=== PATIENT | female | born 1980 | race Caucasian/White ===

== ENCOUNTER → 2017-04-24 17:06 | Outpatient (CLI) | payer OTHER, SELFPAY ==
--- NOTE | 2017-04-24 17:11 | RAD_ITS ---
STUDY: X-RAY - ABDOMEN/PELVIS REASON FOR EXAM: Female, 36 years old. Abdominal pain and nausea. TECHNIQUE: AP supine and upright views of the abdomen and pelvis. COMPARISON: None. FINDINGS: Normal visualized lung bases. There is an unremarkable bowel gas pattern. There is no demonstrated free abdominal air. The visualized liver, spleen and kidneys are grossly normal in size and morphology. Normal soft tissue structures. Normal visualized osseous structures. RAD/Abd Inc Decub and/or Erect IMPRESSION: Normal x-ray examination of the abdomen and pelvis. Electronically Signed: Brian Puente MD at 14:56 EST , Service support ,
[2017-04-24 17:52] LABS: Basophil# 0.03 X10^3/uL; Basophil% 0.2 % (0-1); Eosinophil# 0.49 X10^3/uL; Eosinophils% 3.6 % (0-5); Hematocrit 40.5 % (37-47); Hemoglobin 13.4 g/dl (12.0-15.0); Mean Corp Hgb Conc 33.1 g/gl (32-36); Mean Corpuscular Volume 90.8 fL (81-99); Mean Platelet Vol. 9.6 fl (6.2-12.0); Monocyte# 0.85 X10^3/uL; Monocyte% 6.2 % (0-10); Neutrophil # 7.95 X10^3/uL (2.7-7.7); Neutrophil % 57.6 % (47-70); POSITIVE COUNT NO; POSITIVE DIFFERENTIAL NO; Platelet Count 216 K/mm3 (150-450); RBC Distribution Width CV 13.2 % (11.6-14.6); RBC Distribution Width SD 43.9 fl (35.1-43.9); Red Blood Count 4.46 M/mm3 (4.2-5.4); White Blood Count 13.8 K/mm3 (4.4-11.0)
[2017-04-24 17:53] LABS: POSITIVE MORPHOLOGY NO
[2017-04-24 18:17] LABS: AST(SGOT) 15 U/L (15-37); Alanine Aminotransfer ALT/SGPT 26 U/L (13-56); Albumin, Serum 3.8 g/dL (3.2-5.0); Alkaline Phosphatase 57 U/L (45-117); Amylase 45 U/L (25-115); Bilirubin, Direct 0.08 mg/dL (0.00-0.30); Globulin 4.1 g/dL (2.2-4.2); Lipase 132 U/L (73-393); Protein, Total 7.9 g/dL (6.4-8.2)
== END ==
PROVIDERS: Family Provider Family Medicine; PCP Family Medicine; Visit Provider Family Medicine
DX: R10.11 Right upper quadrant pain (principal)
CPT/HCPCS: 74019; 80076; 82150; 83690; 85025

== ENCOUNTER 2017-10-20 08:25 | Emergency (ER) | payer OTHER, BC, SELFPAY ==
[2017-10-20 08:27] VITALS: BP 153/87; PULSE 71; RESP 14; TEMP 35.5; O2SAT 97; BMI 39.9
--- NOTE | 2017-10-20 08:43 | ED.VISSUMM ---
- ER Visit Summary Date of Service: 10/20/17 Chief Complaint: Bilateral jaw pain History of Present Illness: The patient is a 37 F who states that when she woke up this morning she had pain at the angle of her mandible on each side. She states it is very sore to open her jaw. She does not recall ever dislocating her jaw. She denies any excessive chewing yesterday. Patient states that from 10:00 to 3:30 in the morning she slept fine but at 0330 she woke with the pain. She denies any dental pain. She denies any focal swelling. No hearing changes. No ear pain. No sinus problems. Physical Examination: Afebrile vital signs are stable Gen: Well-nourished well-developed Head: Normocephalic atraumatic Eyes: Perrl EOMI ENT: TMs clear no rhinorrhea moist mucous membranes the patient has discomfort with opening of the mandible. The patient has mild tenderness to palpation along the masseter muscles. There is mild TMJ tenderness. There is no pain along the zygomatic arch or temporalis muscle. Neck: Supple no lymphadenopathy no JVD nontender CVS: Regular rate rhythm no murmurs normal S1-S2 Respiratory: No distress clear to auscultation bilaterally chest nontender Abdomen: Soft nontender nondistended normal bowel sounds no masses Back: Nontender Extremity: Nontender no edema Skin: Normal color no rash Neuro: alert orientated ?3 CN II-XII intact normal strength sensation reflexes gait cerebellar Psych: Normal affect normal mood Test Results: Not indicated Emergency Department Course and Treatment: I believe the patient most likely was sleeping with her jaw clenched resulting in over activation of the masseter muscles now resulted in soreness. I will encourage her to eat soft foods today to avoid chewing. This becomes a more chronic issue she should see her dentist for a bite guard. We talked about muscle relaxants and the patient declines at this time which I feel is very reasonable Impression: 1. Acute masseter muscle strain This note was generated with Duable Chinese dictation software. It may contain incorrect words, spelling, and punctuation that were not noted in review of the chart prior to signing ED Disposition - Plan for ED Patient: Disposition: Home or Assisted Living Chief Complaint: Other, Pain/Inj Instructions: Understanding Temporomandibular Disorders (TMD)
== END 2017-10-20 09:00 | disposition home or self-care (01) ==
LOC: ED 09:05
PROVIDERS: Emergency Provider Emergency Medicine; Family Provider Family Medicine; PCP Family Medicine
DX: S09.11XA Strain of muscle and tendon of head, initial encounter (principal); X58.XXXA Exposure to other specified factors, initial encounter; Y93.9 Activity, unspecified; Y92.9 Unspecified place or not applicable
CPT/HCPCS: 99281

== ENCOUNTER → 2018-01-04 14:12 | Outpatient (CLI) | payer OTHER, BC, SELFPAY | PROVIDERS: Family Provider Family Medicine; PCP Family Medicine; Visit Provider Family Medicine | DX: Z00.00 Encounter for general adult medical examination without abnormal findings (principal) ==

== ENCOUNTER → 2018-01-08 09:45 | Outpatient (CLI) | payer OTHER, BC, SELFPAY ==
[2018-01-08 12:36] LABS: Anion Gap 7 (5-15); BUN 21 mg/dL (7-18); BUN/Creat Ratio 21.6 RATIO (10-20); Calcium,Total 8.5 mg/dL (8.5-10.1); Chloride 107 mmol/L (98-107); Creatinine, Serum 0.97 mg/dL (0.55-1.02); EST Glomerular Filtration Rate 69 mL/min (>60); Est Glom Filt Rate - Afr Amer 84 mL/min (>60); Glucose 112 mg/dL (74-106); Potassium 4.3 mmol/L (3.5-5.1); Sodium Level 141 mmol/L (136-145)
== END ==
PROVIDERS: Family Provider Family Medicine; PCP Family Medicine; Visit Provider Family Medicine
DX: I10 Essential (primary) hypertension (principal)
CPT/HCPCS: 36415; 80048

== ENCOUNTER 2018-03-19 17:52 | Emergency (ER) | payer OTHER, BC, SELFPAY ==
[2018-03-19 17:54] VITALS: BP 141/82; PULSE 90; RESP 16; TEMP 36.9; O2SAT 98; BMI 39.0
--- NOTE | 2018-03-19 18:02 | EKG12_ITS ---
Test Reason : CHEST PAIN Blood Pressure : / mmHG Vent. Rate : 080 BPM Atrial Rate : 080 BPM P-R Int : 156 ms QRS Dur : 084 ms QT Int : 386 ms P-R-T Axes : 047 035 042 degrees QTc Int : 445 ms Normal sinus rhythm Nonspecific ST abnormality Abnormal ECG Confirmed by JOSE G GONZALEZ, MAYNOR ([id number]), research editor CHERYL STEVENSON ([id number]) on 03/21/2018 3:41:30 PM Referred By: TARIK Confirmed By:MAYNOR ARAIZA MD
--- NOTE | 2018-03-19 18:08 | ED.DCSUM_ITS ---
- ER Visit Summary Date of Service: 03/19/18 Chief Complaint: Chest pain History of Present Illness: The patient is a 37 F who presents to the emergency department for evaluation of chest pressure. She states that is been intermittent since this morning. When it comes on it feels like somebody is pushing against the left side of her chest and it makes her left arm feel like pins and needles. She denies any recent travel. She denies any recent surgeries. No recent DVT PE in the past. She is a smoker. She is not having her symptoms at the time of history and physical Physical Examination: Afebrile vital signs are stable Gen: Well-nourished well-developed Head: Normocephalic atraumatic Eyes: Perrl EOMI ENT: TMs clear no rhinorrhea moist mucous membranes Neck: Supple no lymphadenopathy no JVD nontender CVS: Regular rate rhythm no murmurs normal S1-S2 Respiratory: No distress clear to auscultation bilaterally chest nontender Abdomen: Soft nontender nondistended normal bowel sounds no masses Back: Nontender Extremity: Nontender no edema Skin: Normal color no rash Neuro: alert orientated ?3 CN II-XII intact normal strength sensation reflexes gait cerebellar Psych: Normal affect normal mood Test Results: EKG shows a normal sinus rhythm at a rate of 80. No concerning features for ACS. Chest x-ray shows a normal mediastinal silhouette. No obvious lung pathology noted. Troponin and d-dimer are negative. Emergency Department Course and Treatment: I do not see an obvious emergent cause for the patient's pain. She does have a history of GERD so perhaps this could be intermittent esophageal spasm. Patient will follow up with her family doctor if not improving return if worsening or concerns HEMANTH score 0 Impression: 1. Chest pain This note was generated with TapResearchation software. It may contain incorrect words, spelling, and punctuation that were not noted in review of the chart prior to signing ED Disposition - Plan for ED Patient: Chief Complaint: Chest Pain Instructions: ED Chest Pain Atypical Unkn Cause Referrals: Tereza Nguyen MD [Primary Care Provider] - 3-5 Days if not improving
--- NOTE | 2018-03-19 18:20 | RAD_ITS ---
STUDY: X-RAY CHEST REASON FOR EXAM: Female, 37 years old. Chest pressure TECHNIQUE: PA and lateral COMPARISON: May 19 2011 report only FINDINGS: The lungs are clear and expanded. There is no demonstrated pleural abnormality. Normal size heart. Normal mediastinum and dena. Normal visualized pulmonary arteries. Normal visualized aortic arch and descending thoracic aorta. Dorsal spine demonstrates minor spondylosis Normal visualized ribs, clavicles, and shoulders. There is no demonstrated abnormality of the visualized soft tissue structures of the upper abdomen. RAD/Chest PA and Lateral IMPRESSION: No acute cardiopulmonary pathology Electronically Signed: Evan Roche MD at 19:45 EST , Service support ,
[2018-03-19 18:30] LABS: Absolute Lymphocyte Count 3.85 X10^3/ul (0.83-4.51); Absolute Neutrophil Count 7.4 X10^3/uL (2.0-7.7); Basophil# 0.02 X10^3/uL; Basophil% 0.2 % (0-1); Eosinophil# 0.55 X10^3/uL; Eosinophils% 4.3 % (0-5); Hematocrit 41.3 % (37-47); Hemoglobin 13.8 g/dl (12.0-15.0); Lymphocyte # 3.85 X10^3/ul (4.0); Lymphocyte % 30.2 % (19-41); Mean Corp Hgb Conc 33.4 g/gl (32-36); Mean Corpuscular Hgb 30.7 pg (27.0-32.0); Mean Platelet Vol. 10.1 fl (6.2-12.0); Monocyte# 0.87 X10^3/uL; Monocyte% 6.8 % (0-10); Neutrophil # 7.42 X10^3/uL (2.7-7.7); Neutrophil % 58.2 % (47-70); POSITIVE COUNT NO; POSITIVE DIFFERENTIAL NO; POSITIVE MORPHOLOGY NO; Platelet Count 225 K/mm3 (150-450); RBC Distribution Width CV 13.3 % (11.6-14.6); RBC Distribution Width SD 44.3 fl (35.1-43.9); Red Blood Count 4.49 M/mm3 (4.2-5.4); White Blood Count 12.8 K/mm3 (4.4-11.0)
[2018-03-19 18:40] LABS: D-Dimer Quantitative (DVT/PE) 0.42 FEU/ug/m (0.27-0.49)
[2018-03-19 18:54] LABS: Anion Gap 10 (5-15); BUN 18 mg/dL (7-18); Calcium,Total 9.1 mg/dL (8.5-10.1); Chloride 107 mmol/L (98-107); EST Glomerular Filtration Rate 67 mL/min (>60); Est Glom Filt Rate - Afr Amer 81 mL/min (>60); Estimated Creatinine Clearance 82.06 ml/min; Glucose 86 mg/dL (74-106); Potassium 3.5 mmol/L (3.5-5.1); Sodium Level 141 mmol/L (136-145)
[2018-03-19 19:30] VITALS: BP 116/98; PULSE 88; RESP 16
== END 2018-03-19 19:31 | disposition home or self-care (01) ==
PROVIDERS: Emergency Provider Emergency Medicine; Family Provider Family Medicine; PCP Family Medicine
DX: R07.89 Other chest pain (principal); R20.2 Paresthesia of skin; K21.9 Gastro-esophageal reflux disease without esophagitis; F17.200 Nicotine dependence, unspecified, uncomplicated
CPT/HCPCS: 71046; 80048; 84484; 85025; 85379; 93005; 99284; A4216

== ENCOUNTER → 2018-05-15 14:10 | Outpatient (CLI) | payer OTHER, BC, SELFPAY ==
--- NOTE | 2018-05-15 15:20 | NEURO ---
NCS and/or EMG Patient Report Ordering Doctor: Tereza Nguyen DATE OF SERVICE: 05/15/18 Jayne Algeria is a 37-year-old female presents for electrodiagnostic testing of the left upper limb. She reports numbness and tingling primarily in the second digit of the left hand. Electrodiagnostic findings: Left median motor nerve demonstrates prolonged distal latency with normal amplitude and reduced conduction velocity. Normal left ulnar motor response. Normal median ulnar F waves. Prolonged median sensory latency at the wrist. Needle EMG testing reveals fibrillation potentials in the left flexor carpi ulnaris, left triceps and left lower cervical paraspinals. Motor unit action potentials were of normal amplitude and duration. Electrodiagnostic assessment: This is an abnormal study in the left upper limb 1. Electrodiagnostic findings demonstrate left-sided median mononeuropathy. This is consistent with a mild left carpal tunnel syndrome. 2. Needle EMG is suggestive of acute left-sided C7 radiculopathy. Consider clinical correlation with cervical spine imaging. If there are any further questions, please not hesitate to contact me
== END ==
PROVIDERS: Family Provider Family Medicine; PCP Family Medicine; Referring Provider Family Medicine; Visit Provider Family Medicine
DX: R20.2 Paresthesia of skin (principal)
CPT/HCPCS: 95886; 95909

== ENCOUNTER → 2018-06-10 09:39 | Outpatient (CLI) | payer OTHER, BC, SELFPAY ==
--- NOTE | 2018-06-10 09:40 | MRI_ITS ---
STUDY: MRI CERVICAL SPINE WITHOUT CONTRAST REASON FOR EXAM: Female, 37 years old. Left hand neuropathy and neck pain TECHNIQUE: Standardized fat and water weighted pulse sequences were obtained in the sagittal and axial planes. COMPARISON: None FINDINGS: Normal foramen magnum and brainstem-cervical cord junction. Normal craniovertebral junction. Normal anterior atlantoaxial articulation. Normal odontoid process. Cerebellar tonsillar ectopia. The tips of the tonsils are located 4 mm below the foramen magnum. There is straightening of the normal cervical lordosis. Normal vertebral bodies and posterior osseous elements. C2-3: Normal endplates. Normal disc height, signal and morphology. Normal central canal and intervertebral neural foramina. C3-4: Disc osteophyte complex with mild central canal stenosis. C4-5: Disc osteophyte complex without compressive sequelae. C5-6: Disc osteophyte complex with moderate central canal and moderate to severe right and mild left foraminal stenoses. C6-7: Disc osteophyte complex and left paracentral disc protrusion with moderate to severe central canal stenosis, mild cord compression and severe left foraminal stenosis. There is mass effect on the left C7 nerve root. C7-T1: Normal endplates. Normal disc height, signal and morphology. Normal central canal and intervertebral neural foramina. No intrinsic cord signal abnormalities are seen at this time. Normal visualized soft tissue structures. MRI/Spine Cervical (Routine) IMPRESSION: Multilevel degenerative disease as described. At C6-7, there is mild cord compression and severe left foraminal stenosis, with mass effect on the left C7 nerve root. No intrinsic cord signal abnormalities are seen at this time. Electronically Signed: Isac Woodward MD at 12:58 EDT Tel , Service support ,
== END ==
PROVIDERS: Family Provider Family Medicine; PCP Family Medicine; Referring Provider Family Medicine; Visit Provider Family Medicine
DX: G62.9 Polyneuropathy, unspecified (principal)
CPT/HCPCS: 72141

== ENCOUNTER → 2018-09-24 | Outpatient (CLI) | payer OTHER, BC, SELFPAY ==
[2018-09-24 13:21] VITALS: BMI 39.0
--- NOTE | 2018-09-24 13:27 | RAD_ITS ---
STUDY: X-RAY - CERVICAL SPINE REASON FOR EXAM: Female, 38 years old. Neck pain, decreased range of motion TECHNIQUE: 4 view(s) of the cervical spine were obtained. COMPARISON: None FINDINGS: Normal anterior atlantoaxial articulation. Normal odontoid process. Normal cervical lordosis. Normal vertebral bodies and endplates. Disc space narrowing noted at C5-6 and C6-7. No evidence of instability on flexion or extension views. The soft tissue structures are unremarkable. RAD/Cerv Spine 4 or 5 Views IMPRESSION: Degenerative changes, no acute findings Electronically Signed: Tesfaye Hemphill MD at 14:06 EDT , Service support ,
== END | disposition home or self-care (01) ==
LOC: HPRAD 13:26
PROVIDERS: Family Provider Family Medicine; PCP Family Medicine; Referring Provider Orthopaedic Surgery; Visit Provider Orthopaedic Surgery
DX: R20.0 Anesthesia of skin (principal); R20.2 Paresthesia of skin
CPT/HCPCS: 72050

== ENCOUNTER → 2018-12-05 17:46 | Outpatient (CLI) | payer OTHER, SELFPAY ==
[2018-09-24 13:21] VITALS: BMI 39.0
[2018-12-11 13:06] LABS: HPV Reflexed? NOT INDICATED
== END ==
PROVIDERS: Family Provider Family Medicine; PCP Family Medicine; Referring Provider Obstetrics & Gynecology; Visit Provider Obstetrics & Gynecology
DX: Z12.4 Encounter for screening for malignant neoplasm of cervix (principal)
CPT/HCPCS: 88175; G0145

== ENCOUNTER → 2018-12-24 15:23 | Outpatient (CLI) | payer OTHER, BC, SELFPAY ==
[2018-09-24 13:21] VITALS: BMI 39.0
[2018-12-24 18:43] LABS: Thyroid Stim Hormone (TSH) 1.71 uIU/mL (0.358-3.74)
== END ==
LOC: MFPLAB 15:23
PROVIDERS: Family Provider Family Medicine; PCP Family Medicine; Referring Provider Family Medicine; Visit Provider Family Medicine
DX: E66.9 Obesity, unspecified (principal)
CPT/HCPCS: 36415; 84443

== ENCOUNTER 2019-07-22 09:00 | Outpatient (RCR) | payer OTHER, SELFPAY ==
[2018-09-24 13:21] VITALS: BMI 39.0
--- NOTE | 2019-07-22 10:20 | BH.SGPN.GN ---
This psychotherapy group was provided via telehealth using two-way, real-time interactive telecommunication technology between the patients and the provider. The interactive telecommunication technology included audio and video. The patient was offered telemedicine as an option for care delivery during the COVID-19 pandemic and consented to this option. Patient location: [place] Provider located at [facility] Behaviors/Verbalizations/Mental Status: []Client alert and oriented, casually dressed and groomed. Eye contact good. Motor activity appropriate. Speech within normal limits. Affect constricted, mood irritable. Thoughts linear, logical, no signs of hallucinations or delusions. Client Response/Progress/Benefit: []Client was an active participant AEB client providing input during discussion and listened attentively to others. Contributed to discussion of the quote and stated she could connect with the concept of sitting with uncomfortable feelings. Client shared thinking of taking on her fears rather than avoiding them makes client nervous. Client connected with discussion on the difference between ?normal? anxiety and when anxiety becomes problematic. Client stated she becomes anxious when she recognizes warning signs that he is drinking more than usual. Client gained awareness of personal physical symptoms of anxiety which included; shaking, feeling panicky, and stomach issues. Client also identified safety behaviors client has used when feeling anxious. These safety behaviors included; isolating and lashing out at others. Client appeared to benefit from gaining insight to physical signs of anxiety and personal safety behaviors. Client's first day of IOP tx. Will continue IOP to prevent decompensation, increase healthy coping skills, and improve mood stability. Narrative Note: []
--- NOTE | 2019-07-22 11:21 | BH.SGPN.GN ---
Behaviors/Verbalizations/Mental Status: []Client alert and oriented, casual in appearance. Eye contact good. Motor activity via as this was conducted via telehealth. Speech within normal limits. Affect congruent, mood dysthymic, anxious. Thoughts linear, logical, no signs of hallucinations or delusions. Client Response/Progress/Benefit: []Pt active participant and providing some input to discussion, listened attentively to others, and taking notes throughout. Pt nodding throughout and appeared to connect with the discussion reviewing three categories of skills for managing anxiety which included mind-based, body-based, and self-soothing. Asked questions throughout and contributed ideas. Described to the group skills she currently uses such as going for a drive to help ease her anxiety. Pt did well to identify a skill she is willing to practice mindfulness in the areas of body-based as: deep breathing, Self-soothing as: taking a bath, and mind-based: coloring. Pt seemed to benefit from increased awareness of healthy skills to manage anxiety related symptoms and in identifying skills willing to practice outside treatment environment. Progress limited as it is pt first day in IOP program. Client to continue IOP level of care to increase healthy coping skills, promote emotion regulation skills, and prevent decompensation. Narrative Note: []
--- NOTE | 2019-07-23 08:05 | BH.COMM ---
Communication Note - Communication with Client Communication Note: Pt completed pre-admission screen via telehealth on 07/22/19. During the timeframe of the COVID-19 pandemic, verbal consent was obtained on 07/22/19 at 09:22am via Zoom from Jayne Gan for IOP level of care. During the duration of the telehealth call, Therapist reviewed with pt consent to treat, telehealth consent, basic client rights, and ROIs which she reviewed and verbally consented to. Pt to begin the IOP program on this date. Therapist additionally worked with pt to complete [place] Suicide Screening Assessment. No significant changes since pre-admission screening. Low to moderate risk for suicide. Denies suicidal ideations in the past month. Reports hx of suicidal thoughts on one prior occasion, approximately 3 months ago. Denies thoughts or ideation since. Reports mainly passive thoughts of ?what would happen if I just weren?t here?. Denies any other prior hx of suicidal ideation or attempts. Denies hx of self-harming behaviors. Protective factors. Future-oriented.
--- NOTE | 2019-07-29 09:03 | BH.SGPN.GN ---
This psychotherapy group was provided via telehealth using two-way, real-time interactive telecommunication technology between the patients and the provider. The interactive telecommunication technology included audio and video. The patient was offered telemedicine as an option for care delivery during the COVID-19 pandemic and consented to this option. Patient location: [place] Provider located at [facility] Behaviors/Verbalizations/Mental Status: []Client alert and oriented, neatly dressed and groomed. Eye contact good. Motor activity appropriate. Speech within normal limits. Affect congruent-tearful, mood anxious. Thoughts linear, logical, no signs of hallucinations or delusions. Reviewed client?s symptom tracker, no risk for suicidal ideation, plan, or intent as of 07/29/19. Client Response/Progress/Benefit: []Client responded well to session, receptive to feedback from peers. Client reports feeling anxious today and she was tearful during check-in. Client shared she is struggling with her 's alcoholism. Client her is a functioning alcoholic, so you wouldn't even know. Client receptive to feedback from peers and emotional support. Client acknowledged she needs to practice self-care and set boundaries. Client practiced self-care over the weekend. Client reported she went for a walk with her dog and pushed herself to clean this weekend. Client recognized that when she pushes herself to do things she feels better. Appeared to benefit from connecting with peers and receiving emotional support. Will continue IOP tx to prevent decompensation, increase healthy coping skills, and reduce isolative behaviors. Narrative Note: []
--- NOTE | 2019-07-29 10:15 | BH.SGPN.GN ---
This psychotherapy group was provided via telehealth using two-way, real-time interactive telecommunication technology between the patients and the provider. The interactive telecommunication technology included audio and video. The patient was offered telemedicine as an option for care delivery during the COVID-19 pandemic and consented to this option. Patient location: [place] Provider located at [facility] Behaviors/Verbalizations/Mental Status: []Client alert and oriented, casually dressed and groomed. Eye contact good. Motor activity appropriate, though limited info due to pt being telehealth. Speech within normal limits. Affect appearing congruent, mood anxious and euthymic. Thoughts linear, logical, no signs of hallucinations or delusions. Client Response/Progress/Benefit: []Client responded well to session, remained attentive and providing input to discussion. Client indicated connecting with topic of boundaries and agreed with peers that healthy boundaries are essential for maintaining mental health progress. Expressed that the importance of setting healthy boundaries has become much more evident to her as she has gotten older and since experiencing increased mental health sx. Group participated in the discussion on benefits of setting boundaries which included; feeling happier, improved self-confidence, avoidance of toxic people, and reduced stress. Client engaged during discussion on the different types of boundaries and able to identify and connect with examples of each. Client also helped the group recognize the consequences of not having healthy boundaries. Provided an example of recently oversharing information about a family member which resulted in mistrust and them becoming upset with pt. Client seemed to benefit from increased awareness of how poor boundaries can negatively impact mental health. Progress noted in client?s increased awareness and more input provided during group. Will continue IOP tx to promote mood stability, improve consistent skill application, and improve daily functioning. Narrative Note: []
--- NOTE | 2019-07-29 11:20 | BH.SGPN.GN ---
This psychotherapy group was provided via telehealth using two-way, real-time interactive telecommunication technology between the patients and the provider. The interactive telecommunication technology included audio and video. The patient was offered telemedicine as an option for care delivery during the COVID-19 pandemic and consented to this option. Patient location: [place] Provider located at [facility] Behaviors/Verbalizations/Mental Status: []Client alert and oriented, casually dressed. Eye contact fair. Motor activity appropriate. Speech within normal limits. Affect constricted, mood anxious and depressed. Thoughts linear, logical, no signs of hallucinations or delusions. Client Response/Progress/Benefit: []Client responded well to session, actively contributing during discussion and making connections during the activity. Client engaged in the boundary self-assessment activity and participated in discussion to process the activity. Client attentive during psychoeducation on the boundary setting styles and she shared belief she uses porous and rigid boundary setting styles. Client stated she starts off as porous with her boundaries by letting everyone in. Pt reported when she feels used or disrespected then she transitions to having a rigid boundary. Pt reported rigid boundaries Progress noted in client?s report of reduced isolation and application of opposite action. Will continue IOP tx to promote use of healthy coping skills, further decrease depression, and improve functioning. Narrative Note: []
--- NOTE | 2019-07-30 09:07 | BH.SGPN.GN ---
Behaviors/Verbalizations/Mental Status: []Client alert and oriented, neat and casually dressed. Eye contact good. Motor activity appropriate. Speech within normal limits. Affect congruent, mood depressed, anxious. Thoughts linear, logical, no signs of hallucinations or delusions. Reviewed client?s symptom tracker, no risk for suicidal ideation, plan, or intent as of 07/30/19. Client Response/Progress/Benefit: []Client responded well to session, attentive and willing to share with the group. Client reports feeling tired and sluggish today as she was up much of the night thinking about all the things she has to do. Expressed this as her current stressor as she now has less energy and motivation to complete the tasks due to nighttime rumination. Receptive of suggestions from the group from managing nighttime anviety and expressed wanting to work on practicing deep breathing exercises. Pt did well to identify current mental health wins which included getting her car fixed and being able to attend IOP group in person. Expressed that she feels more relieved since getting her car fixed. Receptive of support and appeared to benefit from the structured group setting. Will continue iop tx to improve mood stability, prevent decompensation, and improve mental health sx management. Narrative Note: []
--- NOTE | 2019-07-30 10:15 | BH.SGPN.GN ---
Behaviors/Verbalizations/Mental Status: []Client alert and oriented, casually dressed. Eye contact fair. Motor activity appropriate. Speech within normal limits. Affect constricted, mood dysthymic. Thoughts linear, logical, no signs of hallucinations or delusions. Client Response/Progress/Benefit: []Pt semi-active participant throughout session AEB pt providing limited input throughout discussion, however did appear to listen attentively to peers and completed worksheet. Group identified external consequences to not managing anger which included: cause conflict, push people away, lose relationships, potential legal problems, increases avoidance, hurt others, and negatively impact work. Group identified internal consequences of unmanaged anger which include: high blood pressure, ulcers, headaches, muscle tension, irrational thoughts, irrational behavior, guilt and shame. Pt shared emotions that are underlying anger include: depressed, embarrassed, and over-apologetic. Pt seemed to benefit from increased awareness of how unmanaged anger can impact self and others. Pt to continue IOP to increase healthy coping skills, challenge distorted thoughts and prevent decompensation. Narrative Note: []
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
--- NOTE | 2019-07-30 13:13 | BH.DR.ITP ---
Initial Treatment Plan - Patient Information Visit Information: ADMISSION DATE: EXPECTED LOS: 4-6 weeks - Problems/Symptoms Problem #1:: Depression Symptom:: sadness, crying, anhedonia, fatigue, low energy Problem #2:: Anxiety Symptom:: Rumination, panic attacks, worry
--- NOTE | 2019-07-30 14:44 | BH.MDN ---
Multi-Disciplinary Note - Note 30-min Individual Time Started:: 12:10 Date: 07/30/19 Time Stopped:: 12:45
--- NOTE | 2019-08-01 09:09 | BH.SGPN.GN ---
Behaviors/Verbalizations/Mental Status: []Client alert and oriented, appropriate grooming and appearance. Eye contact good. Motor activity appropriate. Speech within normal limits. Affect congruent, mood anxious and euthymic. Thoughts linear, logical, no signs of hallucinations or delusions. Reviewed client?s symptom tracker, no risk for suicidal ideation, plan, or intent as of 08/01/19. Client Response/Progress/Benefit: [] Client responded well to session, engaged and listening throughout. Client reports feeling positive today as she was able to take some time to practice emotional release activities with her daughter. Indicated that this was her goal from last group and that it both made her feel a sense of release as well as provided an opportunity to mercer more with her daughter. Expressed gaining insight into how using healthy coping can really start to change her mood. Pt went on to indicate feeling she still struggles to know what skills to utilize which has been a stressor, but that she is open to trying new activities and expanding her knowledge. Appeared to benefit from reflecting on impact of application of coping skills and support from the group. Will continue IOP tx to further improve mood stability, reduce negative and racing thoughts, and increase healthy coping skills. Narrative Note: []
--- NOTE | 2019-08-01 10:16 | BH.SGPN.GN ---
This psychotherapy group was provided via telehealth using two-way, real-time interactive telecommunication technology between the patients and the provider. The interactive telecommunication technology included audio and video. The patient was offered telemedicine as an option for care delivery during the COVID-19 pandemic and consented to the option. Patient location: [place]. Provider located at [facility] Behaviors/Verbalizations/Mental Status: []Client alert and oriented, casually dressed and groomed. Eye contact fair. Motor activity appropriate. Speech within normal limits. Affect congruent, mood anxious. Thoughts linear, logical, no signs of hallucinations or delusions. Client Response/Progress/Benefit: []Client was an active participant AEB providing some input throughout discussion, taking notes, and actively listening. Client participated in group discussion regarding mental health benefits of change which included improved functioning, less anxiety and depression, personal growth, and happiness. Client identified small personal changes to improve mental health as: taking medications consistently, going to bed earlier and eating breakfast each day, and identifying toxic people in her life. Identified current barriers keeping client from making those changes to be: not liking how it feels to take medication, anxiety, and lack of insight. Client appeared to benefit from gaining awareness of personal changes that would improve mental health and the barriers keeping client stuck. Will continue IOP tx to prevent decompensation, improve mood stability, and to reduce anxiety and irritability. Narrative Note: []
--- NOTE | 2019-08-01 11:18 | BH.SGPN.GN ---
This psychotherapy group was provided via telehealth using two-way, real-time interactive telecommunication technology between the patients and the provider. The interactive telecommunication technology included audio and video. The patient was offered telemedicine as an option for care delivery during the COVID-19 pandemic and consented to the option. Patient location: [place]. Provider located at [facility] Behaviors/Verbalizations/Mental Status: []Client alert and oriented, casually dressed and groomed. Eye contact poor. Motor activity appropriate. Speech within normal limits. Affect constricted, mood depressed. Thoughts linear, logical, no signs of hallucinations or delusions. Client Response/Progress/Benefit: []Client responded well to session, engaged in discussion. Client did well to select one change she would like to make and identified a SMART goal to help client make this change. Shared she wants to work on identify toxic people in her life by journaling about issues the cause stress in her life. Barriers for this change included: family, caring too much, and fear of losing supports. Discussed that this change would help client increase healthy boundaries and reduce anxiety. Client?s SMART goal was to journal each day and practice setting one healthy boundary. Client benefited from working with group to identify strategies to overcome barriers to change and create a plan for implementing one small change promoting personal growth. Client recommended to continue IOP tx to reduce intensity of symptoms, improve daily functioning, and increase healthy coping skills. Narrative Note: []
== END 2019-08-03 23:59 ==
LOC: BHIOP 09:00
PROVIDERS: PCP Family Medicine; Referring Provider Psychiatry & Neurology Psychiatry; Visit Provider Psychiatry & Neurology Psychiatry
DX: F33.2 Major depressive disorder, recurrent severe without psychotic features (principal); F41.1 Generalized anxiety disorder; Z72.89 Other problems related to lifestyle
CPT/HCPCS: H0035; 90832; 90853

== ENCOUNTER 2019-08-05 09:00 | Outpatient (RCR) | payer OTHER, SELFPAY ==
[2018-09-24 13:21] VITALS: BMI 39.0
--- NOTE | 2019-08-05 09:06 | BH.SGPN.GN ---
Behaviors/Verbalizations/Mental Status: []Client alert and oriented, casually dressed and groomed. Eye contact good. Motor activity appropriate. Speech within normal limits. Affect unable to gather due to client wearing a mask for COVID-19 protocol, mood anxious. Thoughts linear, logical, no signs of hallucinations or delusions. Reviewed client?s symptom tracker, no risk for suicidal ideation, plan, or intent as of 08/05/19. Client Response/Progress/Benefit: []Client responded well to session, providing feedback to peers and attentive throughout. Client reports feeling anxious today. Client feels anxious because her children are not with client this week as they are with her ex-. Client stated it is always harder for her mentally when she is not distracted by her children. Client's mental health wins today were that she has been trying to stay busy, setting boundaries with toxic people, and following through with writing in her dump journal. Client stated writing in her dump journal has helped client collect her thoughts when she feels overwhelmed. Appeared to benefit from connecting with peers and reflecting on her application of coping skills. Progress noted in client's self-report of setting more boundaries. Will continue IOP tx to promote mood stability, reduce anxiety and irritability, and improve daily functioning. Narrative Note: []
--- NOTE | 2019-08-05 10:15 | BH.SGPN.GN ---
Behaviors/Verbalizations/Mental Status: []Client alert and oriented, casually dressed. Eye contact good. Motor activity appropriate. Speech within normal limits. Affect constricted, mood depressed and anxiou. Thoughts linear, logical, no signs of hallucinations or delusions. Client Response/Progress/Benefit: []Client engaged throughout session AEB nodding and maintaining eye contact. Connected with discussion on how coping with external crises by using unhealthy coping skills could result in a personal crisis. Group reported that it is important to have awareness of warning signs which can prevent reaching crisis point. Group identified warning signs for crisis and client completed the personal warning signs worksheet. Pt identified personal crisis warning signs to include: increased anxiety, rapid mood changes, and hyperfocus. Benefited by increasing awareness of crisis and personal warning signs. Will continue IOP tx to increase healthy coping, improve mood stability and prevent decompensation. Narrative Note: []
--- NOTE | 2019-08-05 11:20 | BH.SGPN.GN ---
Behaviors/Verbalizations/Mental Status: []Client alert and oriented, casually dressed and groomed. Eye contact fair. Motor activity appropriate. Speech within normal limits. Affect constricted. Mood dysthymic and anxious. Thoughts linear, logical, no signs of hallucinations or delusions. Client Response/Progress/Benefit: []Client responded well to session as evidenced by client listening attentively to others and providing input throughout session. Client identified her warning signs for crisis and gained further awareness of earliest warning signs. Client appeared to connect that awareness of these warning signs can prevent further crisis and help client utilize healthy coping skills to break the cycle. Client created a crisis action plan to help client better manage warning signs for crisis. Client?s plan included: reaching out to supports, changing environment, walking way, and practice positive affirmations..Client shared her plan is to combat negative thoughts by practicing identifying positives and reframing thoughts. Client appeared to benefit from creating a crisis action plan and increasing self-awareness. Client to continue IOP tx to prevent decompensation, increase healthy coping, and improve healthy boundaries. Narrative Note: []
--- NOTE | 2019-08-06 09:07 | BH.SGPN.GN ---
Behaviors/Verbalizations/Mental Status: []Client alert and oriented, casually dressed. Eye contact good. Motor activity appropriate. Speech within normal limits. Affect congruent, mood dysthymic, anxious. Thoughts linear, logical, no signs of hallucinations or delusions. Reviewed client?s symptom tracker, no risk for suicidal ideation, plan, or intent as of 08/06/19. Client Response/Progress/Benefit: []Client attentive and willing to share with the group. Reports feeling ?tired today as she continues struggling with ruminating thoughts at night. Expressed beginning to use some coping skills such as focusing on the positives and journaling which has been somewhat helpful so far. Client indicated knowing that that progress takes time and was receptive of suggestions and support provided by the group. Pt did well to identify current mental health wins as taking time to practice focusing on positives when noticing she was having a lot of negative thoughts, as well as reaching out to supports rather than allowing herself to dwell a ?bad day?. Pt expressed she is beginning to see some areas of improvement in her ability to manage mental health sx. Appeared to benefit from identifying areas of progress as well as the supportive and structured group setting. Will continue IOP tx to maintain gains and continue to promote healthy mental health sx management. Narrative Note: []
--- NOTE | 2019-08-06 11:09 | BH.SGPN.GN ---
Behaviors/Verbalizations/Mental Status: []Client alert and oriented, neatly dressed and groomed. Eye contact good. Motor activity appropriate. Speech within normal limits. Affect unable to gather due to wearing a mask for COVID-19 protocol, mood anxious. Thoughts linear, logical, no signs of hallucinations or delusions. Client Response/Progress/Benefit: []Client was an active participant in group discussion and activity, did well to follow instructions and provide directions to peers. Engaged during activity and provided ideas on how to cope with internal barriers that keep clients stuck from moving towards goals. Barriers identified by the group included: fear of the unknown, anxiety, negative thinking, isolation, and using unhealthy coping skills. Strategies identified for overcoming these barriers included: deep breathing, affirmations, reaching out to supports, thought challenging, opposite action, and positive self-talk. Client reported she wants to work on overcoming her barrier of negative thinking. Client shared she plans to do this by continuing to journal, but she also wants to try thought challenging in her head. Benefited from group by identifying obstacles and solutions to desired reality. Progress noted in client?s increased insight to her warning signs and unhealthy coping skills. Will continue IOP tx to prevent decompensation, improve healthy coping skills, and reduce negative thoughts. Narrative Note: []
--- NOTE | 2019-08-06 15:23 | BH.NA_ITS ---
Physical Data - Vital Signs Pulse Rate: 78 Blood Pressure: 138/88 - Height/Weight Height: 1.73 m - stated Weight:: 112.037 kg - stated Weight in Pounds: 247.0 lbs Nutritional History - Appetite Nutritional Instructions:: If client shows signs of a swallowing problem, weight change of 10 pounds or more in the last month, or is on a diabetic diet, the physician will review and request a dietitian consult, as appropriate. All unintentional weight loss will be referred to the physician for decision on need for dietitian consult. Describe your appetite:: Fair Have you noticed a change in your eating habits lately?: Yes - Client states appetite has decreased since starting Effexor Functional Assessment - Sleep Pattern Describe any problems with sleeping: Client states she has been getting approximately 5hrs of sleep since starting on Effexor Sunday07/30/19 night. - Activities Motor Activity:: Functional Sensory/Communication Assess - Communication Problems Do you have difficulty understanding what people are saying?: No Medical Problems/History - Cardiac Conditions Cardiovascular: Hypertension - Gastrointestinal Conditions Gastrointestinal: Other (See comments) Comments:: GERD Surgical History - Surgical History Have you had any surgeries? If so, list type and date:: Yes - Tubal ligation, Tonsillectomy, Cholecystectomy, Ovary removed, Ovarian Cyst Substance Abuse - Substance Abuse Please describe substance abuse in the last 30 days:: Client states that she drinks on the weekends Sunday-Sunday, states wine. Client states that she has used tobacco, smokes 1/2PPD since approximately 2002. Client states that she consumes caffeine, drinking one cup coffee daily. Mental Status Summary - Mental Status Significant Findings/Observations on Appearance and Mood:: Client is alert and oriented x4. Client is casually groomed. Client is cooperative with assessment, makes good eye contact during conversation. Client's speech with normal rate and volume, coherent and spontaneous. Client appears mildly anxious and mildly depressed during assessment. Client makes logical associations, normal processing. Client denies delusions and hallucinations, none evident. Client appears with good insight and judgement. Suicide Assessment - Suicidal Ideation Are you currently or have you been suicidal in the past?: No - Denies current SI/HI Suicidal Intentional Rating Scale (SIRS): No suicidal thoughts (past or present) Physician Notification: If Active suicidal thoughts/Will not contract for safety is checked, contact physician and document in the Physician Notification section below. Past Psychiatric History - MH Treatment Hx Past Psychiatric Medications:: Client states has been on antidepressants in the past but cannot recall the names Age of first mental health symptoms: Client states that she has not been officially diagnosed with Anxiety or Depression but has had anxiety and depressiojn since about 17yo Describe (age, circumstance, etc) any past hospitalizations: Client denies past psychiatric hospitalizations. Current providers for mental health treatment (counselor, psychiatrist, nurse case management, etc.): Client denies any mental health providers Fall Risk Assessment - Age Age: Less than 60 - Mental Status Mental Status: Willing & able to ask for assistance when needed - Physical Status Physical Status: No problems - Impairments Impairments: None - Elimination Elimination: Continent AND independent - Gait or Balance Gait or Balance: Walks independently - Hx of Falls History of falls in the past 6 months: No known history - Medications/Substances Psychotropics:: Antidepressants Medications/substances used within the past 24 hours or ordered to administer: 1-2 of the medications/substances listed above - Total Score Total Points:: 1 RN Summary of Impressions - Impressions Recommendations: Include psychiatric and medical issues, treatment planning recommendations, and discharge planning needs. Impressions: Psychiatric Issues: Major depressive disorder, recurrent, severe without psychosis; generalized anxiety disorder; alcohol use disorder - Level of Care How do the client's current symptoms and functional deficits support need for this level of care?: Client details onset of current episode, stating it started over the past year. Client states that she has felt an increase in anxiety, some depression and anger outburst towards her . States her is an alcoholic and that has been a stressor. Client states she drinks alcohol to cope. IOP will promote gains and prevent further decompensation while providing social support and skills training.
[2019-08-06 15:39] VITALS: BP 138/88; PULSE 78
--- NOTE | 2019-08-08 09:14 | BH.SGPN.GN ---
This psychotherapy group was provided via telehealth using two-way, real-time interactive telecommunication technology between the patients and the provider. The interactive telecommunication technology included audio and video. The patient was offered telemedicine as an option for care delivery during the COVID-19 pandemic and consented to this option. Patient location: [place] Provider located at [facility] Behaviors/Verbalizations/Mental Status: [] Client alert and oriented, casually dressed. Eye contact good. Motor activity appropriate, though difficult to determine as pt telehealth. Speech within normal limits. Affect congruent, though pt telehealth, mood euthymic. Thoughts linear, logical, no signs of hallucinations or delusions. Reviewed client?s symptom tracker, no risk for suicidal ideation, plan, or intent as of 08/07/19. Client Response/Progress/Benefit: []Client responded well to session, attentive and willing to share with the group. Client reports feeling excited? today as she is planning to go to the [employer] [place] and get pedicures with friends this weekend. Expressed that this will help her with emotional release from some of the stressors she has been facing lately. Expressed additionally taking the step to speak with her parents about her current marital stressors. Noted that this had been difficult for her to do as she worried that her parents would hand hose cutter her; however, shared that they had been much more supportive than expected. Discussed this as a win and shared using deep breathing to help encourage herself to follow through with doing so but is now concerned that she will be a ?burden? to them. Appeared to benefit from challenging this and receiving support from the group. Progress noted in pt improved mood and self-report of increased skill application. Will continue IOP tx to maintain mood stability, continue to work on emotion regulation, and improve mental health sx management. Narrative Note: []
--- NOTE | 2019-08-08 10:15 | BH.SGPN.GN ---
This psychotherapy group was provided via telehealth using two-way, real-time interactive telecommunication technology between the patients and the provider. The interactive telecommunication technology included audio and video. The patient was offered telemedicine as an option for care delivery during the COVID-19 pandemic and consented to this option. Patient location: [place] Provider located at [facility] Behaviors/Verbalizations/Mental Status: []Client alert and oriented, casually dressed. Eye contact good. Motor activity appropriate. Speech within normal limits. Affect constricted, mood anxious. Thoughts linear, logical, no signs of hallucinations or delusions. Client Response/Progress/Benefit: []Pt receptive to session, participating throughout. Provided input as the group brainstormed the positive and negative aspects of stress on physical and mental health. Group worked together to define stress and provided input during discussion about eustress vs distress. Client identified her stressors include: work, coronavirus, family, 's drinking, money, camping trip, family reunion, daughter's birthday constitution party, fear won't follow through with skills after IOP, and brother-in law living with her. Client states most significant stressor is her 's drinking. Seemed to benefit from increased awareness of her current stressors and impact of too much stress on the mind and body. Recommended to continue IOP tx to increase healthy skill application, work on setting and following through with boundaries, and prevent decompensation. Narrative Note: []
--- NOTE | 2019-08-08 11:15 | BH.SGPN.GN ---
This psychotherapy group was provided via telehealth using two-way, real-time interactive telecommunication technology between the patients and the provider. The interactive telecommunication technology included audio and video. The patient was offered telemedicine as an option for care delivery during the COVID-19 pandemic and consented to this option. Patient location: [place] Provider located at [facility] Behaviors/Verbalizations/Mental Status: []Client alert and oriented, casually dressed. Eye contact good. Motor activity appropriate. Speech within normal limits. Affect constricted, mood anxious and dysthymic. Thoughts linear, logical, no signs of hallucinations or delusions. Client Response/Progress/Benefit: []Client engaged participant in session as evidenced by client listening attentively to others and providing input during session. Client reported when she does not manage her stress well client becomes easily agitated, lashes out and is self-critical. Client contributing during discussion about the 4 A's of managing stress. Client able to give different strategies for all the A's and connect it back to her life. Client wants to work on decrease stress of guilt from past choices and stress of 's drinking. Client reported she wants to practice accepting what she cannot control with her past choices and her 's drinking. Pt stated she also wants to practice self-forgiveness. Client seemed to benefit from increased awareness of the impact of stress on mental health and increasing repertoire of stress management strategies. Will continue IOP tx to prevent decompensation, continue use of healthy coping and improve daily functioning. Narrative Note: []
--- NOTE | 2019-08-11 09:05 | BH.SGPN.GN ---
This psychotherapy group was provided via telehealth using two-way, real-time interactive telecommunication technology between the patients and the provider. The interactive telecommunication technology included audio and video. The patient was offered telemedicine as an option for care delivery during the COVID-19 pandemic and consented to this option. Patient location: [place] Provider located at [facility] Behaviors/Verbalizations/Mental Status: [] Client alert and oriented, casual appearance. Eye contact good. Motor activity appropriate. Speech within normal limits. Affect congruent, mood anxious and dysthymic. Thoughts linear, logical, no signs of hallucinations or delusions. Reviewed client?s symptom tracker, no risk for suicidal ideation, plan, or intent as of 08/11/19. Client Response/Progress/Benefit: [] Client responded well to session, attentive and engaged. Client reports feeling anxious today as she had a tense encounter with her yesterday and is worried about potential confrontation this afternoon. Noted knowing that it will be important for them to discuss the previous date and expectations. Client shared she can use self-talk and plan ahead as to what she will say in order to best prepare herself. Expressed that she prevented the encounter from turning into a ?blow-up fight? by walking away, journaling, and focusing on other priorities the remainder of the day. Shared feeling more positive and encouraged by her own ability to apply health coping mechanisms in her daily life. Appeared to benefit from reflecting on application of coping skills as well as the support of the group environment. Will continue IOP tx to further improve mood stability, increase healthy boundaries, and prevent decompensation. Narrative Note: []
--- NOTE | 2019-08-11 10:13 | BH.SGPN.GN ---
Behaviors/Verbalizations/Mental Status: []Client alert and oriented, neatly dressed and groomed. Eye contact good. Motor activity appropriate. Speech within normal limits. Affect congruent, mood anxious. Thoughts linear, logical, no signs of hallucinations or delusions. Client Response/Progress/Benefit: []Client receptive of session, attentive in discussion and activity. Client discussed the quote and connected with personal and interpersonal consequences of not managing emotions. Client helped group identify barriers that impact one?s ability to communicate when emotions are high. These barriers included; negative thoughts, scattered thinking, and feeling out of control. Attentive during psychoeducation on steps to improve emotional regulation. Client participated in the activity and did well to manage emotions throughout. Client did well to not personalize other's emotions and frustrations. Client appeared to benefit from increasing awareness of how emotions can impact communication and practicing in the moment coping skills. Progress noted as client reports generalizing healthy coping skills outside of group. Client will continue IOP tx to further increase healthy emotional regulation skills and further improve mood stability. Narrative Note: []
--- NOTE | 2019-08-11 11:14 | BH.SGPN.GN ---
This psychotherapy group was provided via telehealth using two-way, real-time interactive telecommunication technology between the patients and the provider. The interactive telecommunication technology included audio and video. The patient was offered telemedicine as an option for care delivery during the COVID-19 pandemic and consented to this option. Patient location: [place] Provider located at [facility] Behaviors/Verbalizations/Mental Status: []Client alert and oriented, neatly dressed and groomed. Eye contact good. Motor activity appropriate. Speech within normal limits. Affect congruent, mood anxious. Thoughts linear, logical, no signs of hallucinations or delusions. Client Response/Progress/Benefit: []Client engaged in session AEB client listening attentively to peers and providing input. Attentive during psychoeducation on 4 zones of regulation. Client able to identify feelings and behaviors for each zone. Group identified coping skills one can use to support self in each zone which included: journaling, opposite action, thought challenging, walking pets, listening to music, deep breathing, progressive muscle relaxation, and reaching out to supports. Client stated belief that she is in the yellow zone today because she feels anxious about talking with her . Client reported she can benefit from writing out what she is going to say and practicing calming skills before she talks with him. Benefited from increased education on zones of regulation or stages of alertness for emotions and healthy coping skills to use for each zone. Will continue IOP tx to further improve emotional regulation skills and reduce negative thinking. Narrative Note: []
--- NOTE | 2019-08-13 10:10 | BH.SGPN.GN ---
Behaviors/Verbalizations/Mental Status: []Client alert and oriented, casually dressed and appropriately groomed. Eye contact good. Motor activity appropriate. Speech WNL. Affect congruent, mood anxious and dysthymic. Thoughts linear, logical, no signs of hallucinations or delusions. Client Response/Progress/Benefit: [] Client attentive and providing input throughout. Contributed during discussion on the quote and shared that our thoughts have the power to hold us back if we let them or motivate us. Connected with the discussion about how distorted thought patterns can reinforce mental health symptoms and impact relationships. Client engaged throughout the discussion on different types of thought distortions and noted that she connects with all or nothing thinking, overgeneralization, and fortune telling. Gave an example of fortune telling and noted that this has resulted in hopelessness and a desire to give up in the past. Appeared to benefit from increasing awareness of cognitive distortions and how they can impact emotions and behaviors. Progress noted in client increased skill application and improved communication. Will continue IOP tx to prevent decompensation, increase healthy boundary setting, and increase mood stability. Narrative Note: []
--- NOTE | 2019-08-13 11:19 | BH.SGPN.GN ---
Behaviors/Verbalizations/Mental Status: []Client alert and oriented, casually dressed. Eye contact good. Motor activity appropriate. Speech within normal limits. Affect congruent, mood anxious. Thoughts linear, logical, no signs of hallucinations or delusions. Client Response/Progress/Benefit: []Pt semi-engaged participant as evidenced by pt providing limited input throughout session, taking notes, and completed worksheet. Pt engaged in discussion about discussing additional cognitive distortions. Pt contributed during discussion about how to reframe distorted thoughts to a more rational statement. Pt shared example of a personal distorted thought she has my [id number] is never going to leave my house.? Pt reported this thought makes her feel angry, disappointed, and frustrated. Pt identified distortion to be all or nothing. Pt needed assistance with reframing distorted thought. Reframed though to: ?By setting appropriate boundaries, my [id number] will move out?. Pt seemed to benefit from practicing identifying and reframing distorted thoughts. Pt to continue IOP level of care to increase consistent use of healthy coping, improve healthy boundary setting and prevent decompensation. Narrative Note: []
--- NOTE | 2019-08-13 11:38 | PCM.BH.PN_ITS ---
Progress Note Progress Note: History of Present Illness/Interim History: [] The patient is a 39-year-old female who is seen in follow-up at the [facility] behavioral health IOP program. I last saw the patient about 2 weeks ago and at that time I started her on Effexor XR 37.5 mg p.o. daily. The patient says she is tolerating the Effexor and feels a little better on it but feels the effect has plateaued now. It helped her more when she was in the first 10 days of taking it than it is now. She feels this program is helping her and she is learning valuable skills. She was taking the Effexor at night at bedtime and this caused some insomnia so she is going to change and take it in the morning. She feels that the Effexor XR has helped her with her irritability and mood swings. She says that her mom takes Effexor X are for her cyclothymia. She denies any suicidal or homicidal ideation. She denies any passive thoughts of . She has had no panic attacks in the past 2 weeks which is an improvement. She denies any new stresses or problems. Her has agreed to go to rehab for his alcoholism and she feels okay about this. They are communicating better now in their marriage. But she remains with depressed mood, sadness and some decreased motivation. Still enjoys working on her children but nothing else. Current Psychiatric Medications: [] Effexor XR 37.5 mg p.o. daily (x2 weeks) Mental Status Examination: [] Patient is a 39-year-old female who appears normal for stated age and is wearing a mask due to the pandemic. She has good eye contact and is cooperative during the interview. Her speech is normal rate and rhythm and fluent with no pressure. She has no psychomotor agitation or retardation. Mood is depressed and affect is constricted. Thought process is goal-directed and organized. Thought content: No evidence of suicidal or homicidal ideation. No evidence of passive thoughts of . No plan for suicide. Judgment is intact. Insight: Some present. Impulsivity: Low. Diagnoses: [] [place] I: [] Major depressive disorder, recurrent, severe without psychosis; generalized anxiety disorder; alcohol use disorder [place] II: [] Negative [place] III: [] Hypertension [place] IV:[]] Primary support (marital issues) Plan: [] The patient will continue the IOP program as the structure, support, education, group and individual therapy will hopefully prevent worsening of the patient's symptoms which might require hospitalization. She felt safe during the interview and if it any time she does not feel safe she will let us know or go to the hospital. The risk, options, possible side effects and complications of the medication was discussed with the patient and she understands and accepts these. She agrees to decrease and eliminate alcohol use as a way to cope with her stress. She agrees to increase her Effexor XR to 75 mg p.o. daily. A prescription was sent in for this with 1 refill. She will also continue her maintenance vitamin D doses
--- NOTE | 2019-08-13 14:46 | BH.MDN ---
Multi-Disciplinary Note - Note 30-min Individual Time Started:: 14:05 Date: 08/13/19 Time Stopped:: 12:45
--- NOTE | 2019-08-18 09:04 | BH.SGPN.GN ---
This psychotherapy group was provided via telehealth using two-way, real-time interactive telecommunication technology between the patients and the provider.?The interactive telecommunication technology included audio and video.? ?The patient was offered telemedicine as an option for care delivery during the COVID-19 pandemic and consented to this option. ?Patient location: [place] ?Provider located at [facility] Behaviors/Verbalizations/Mental Status: []Client alert and oriented, casually dressed and groomed. Eye contact good. Motor activity appropriate. Speech within normal limits. Affect congruent. Mood euthymic and anxious Thoughts linear, logical, no signs of hallucinations or delusions. Therapist reviewed client?s symptom tracker and there were no signs of suicidal ideation or risk. Client Response/Progress/Benefit: []Client responded well to session, attentive and positive despite stressors. Client reports feeling good with a side of stress today. Client shared she has several positives today including: having the kids for the weekend, practicing opposite action, and not feeling overwhelmed by stressors. Client's stressor today is a sewage pipe backed up in her basement and client has to deal with getting it fixed. Client reflected on progress and stated in the past this would have been a major trigger for irritability and anxiety. Appeared to benefit from reflecting on growth. Will continue IOP tx to promote gains, further improve use of coping skills, and increase confidence. Narrative Note: []
--- NOTE | 2019-08-18 10:11 | BH.SGPN.GN ---
Behaviors/Verbalizations/Mental Status: [] Client alert and oriented, casual appearance. Eye contact good. Motor activity appropriate. Speech WNL. Affect congruent, mood euthymic. Thoughts linear, logical, no signs of hallucinations or delusions. Client Response/Progress/Benefit: [] Client responded well to session, attentive and engaged throughout discussion and activity. Client appeared to connect with the topic of fear of failure. Client reported that to her failure is ?not reaching a goal?. Expressed that she has a hard time when faced with potential failure and often tries to avoid it. Group discussed common initial reactions to failure which included; decreased motivation, guilt, self-sabotage, and disappointment. Client connected with the concept that mindset is powerful in determining how a person moves forward after failing. Able to connect with the examples fellow participants shared of failure leading to future successes. Engaged and positive during the group activity. Client appeared to benefit from gaining awareness of the impact of fear of failure can have on one?s mental health and wellbeing. Progress noted in self-report of increased skill application. Will continue IOP tx to prevent decompensation of mood symptoms, improve boundary setting and communication skills, and continue to improve mental health sx management. Narrative Note: []
--- NOTE | 2019-08-18 11:20 | BH.SGPN.GN ---
This psychotherapy group was provided via telehealth using two-way, real-time interactive telecommunication technology between the patients and the provider. The interactive telecommunication technology included audio and video. The patient was offered telemedicine as an option for care delivery during the COVID-19 pandemic and consented to this option. Patient location: [place] Provider located at [facility] Behaviors/Verbalizations/Mental Status: []Client alert and oriented, casual appearance. Eye contact good. Motor activity appropriate. Speech within normal limits. Affect congruent, mood anxious. Thoughts linear, logical, no signs of hallucinations or delusions. Client Response/Progress/Benefit: []Client responded well to session, participating during the group activity and willing to complete the worksheet. Client completed the fear of failure worksheet and reported that fear of failure is keeping client from trusting others and personal growth. Client able to identify barriers that reinforce her fear of failure which included: anxiety, events that have happened in the past, and avoidance. Client attentive during discussion of the different strategies to help overcome fear of failure. Group identified strategies such as: positive self-talk, thought challenge, opposite action, redefine definition of failure, positive supports, and remembering that failure is a learning experience. Client stated she plans to work on decreasing fear of failure by increasing positive thinking and positive affirmations. Client appeared to benefit from learning ways to overcome fear of failure. Will continue IOP tx to continue to set healthy boundaries, challenge distorted thoughts and prevent decompensation. Narrative Note: []
--- NOTE | 2019-08-20 09:06 | BH.SGPN.GN ---
Behaviors/Verbalizations/Mental Status: [] Client alert and oriented, casual dress. Eye contact fair to good, however pt telehealth. Motor activity appropriate. Speech within normal limits. Affect unable to gather due to client via telehealth, mood euthymic and anxious. Thoughts linear, logical, no signs of hallucinations or delusions. Reviewed client?s symptom tracker, no signs of suicidal ideation, plan, or intent as of today. Client Response/Progress/Benefit: [] Client responded well to session, providing feedback to peers and engaged in discussion. Client reports feeling excited today as she has plans to go shopping with her daughter who will be turning 14 soon. Noted that she is also excited about the progress she has made in terms of communication with her . Reported that applying the skills of opposite action, planning her words ahead of time, and making self-soothing playlists has been helpful in improving overall ability to cope when overwhelmed. She went on to note a current stressor as an upcoming dentist appointment indicating that she often becomes anxious about going. Able to identify calming skills she may use to cope. Appeared to benefit from reflecting on her application of coping skills and ability to challenge negative thoughts. Will continue IOP tx to promote more consist mood stability, improve daily functioning, and reduce intensity of symptoms. Narrative Note: []
--- NOTE | 2019-08-20 09:09 | BH.SGPN.GN ---
Behaviors/Verbalizations/Mental Status: []Client alert and oriented, casual appearance. Eye contact fair. Motor activity appropriate. Speech within normal limits. Affect constricted, mood anxious. Thoughts linear, logical, no signs of hallucinations or delusions. Client Response/Progress/Benefit: []Pt responded well to session AEB pt sharing thoughts and feelings as well as listening attentively to peers. Pt stated she has been working on her game plan from previous group session of reminding herself that failure is just temporary. Pt reported she has also been using a lot of positive self-talk which she stated is helping. Pt stated on Sunday she had a sewage backup at home and was able to handle the stressor effectively by calling and scheduling for someone to fix it. Pt reported in the past she would have yelled and been angry, but was pleased with herself for being able to stay calm. Pt stated her stressor is a friend whom is struggling and pt has a hard time setting boundaries with this friend. Pt seemed to benefit from support from peers. Pt to continue IOP level of care to continue use of healthy coping, maintain boundaries and prevent decompensation. Narrative Note: []
--- NOTE | 2019-08-20 10:18 | BH.SGPN.GN ---
Behaviors/Verbalizations/Mental Status: []Alert and oriented. Eye contact is good. Motor activity is appropriate. Appearance is casual. Speech is Appropriate. Mood is euthymic. Affect unable to gather due to wearing a mask for COVID-19 protocol. Thoughts are linear and logical. No evidence of psychosis. Client Response/Progress/Benefit: []Client was an active participant in group discussion and activity. Listened to discussion on quote and often nodding. Client agreed with peers that in life there are different forces but it is ultimately up to the individual if they grow from a force or not. Client stated there are internal and external forces in life and that mental health is an example of both. Group worked together to come up with common negative forces in life which can hold them back from growth. These included; negative thinking, self-doubt, toxic people, lack of effort, and use of unhealthy skills. Group then worked together to identify common positive forces which help them grow. These included; healthy coping skills, positive support, positive self-talk, and self-care Benefited AEB increased insight and awareness on the impact of negative and positive forces on mental wellness. Will continue IOP tx to promote gains made in using healthy coping skills and to further reduce intensity of symptoms. Narrative Note: []
--- NOTE | 2019-08-20 11:18 | BH.SGPN.GN ---
Behaviors/Verbalizations/Mental Status: [] Eye contact is good. Motor activity is appropriate. Appearance is casual. Speech is Appropriate. Mood is anxious and euthymic. Affect is congruent. Thoughts are linear and logical. No evidence of psychosis. Client Response/Progress/Benefit: [] Pt receptive of session, actively engaged in activity and group discussion. Worked with group to process the activity and connect negative forces in the task with those experienced in their own lives. Pt identified personal negative forces impacting mental health progress to include: toxic family, environment, distorted thoughts, and lack of communication. Group then worked together to identify common positive forces in activity and life which help us grow. Pt personal positive forces included: trying to slow down before reacting to things, improving communication, setting boundaries, positive supports, and awareness of barriers. Pt was attentive during psychoeducation on the importance of utilizing many aspects of positive forces and benefited from group with increased insight on the impact of negative and positive forces on mental wellness. Progress noted in self-report of improved mood and ability to communicate needs. Pt recommended continued IOP tx to maintain gains, improve symptom management, and continue to work on healthy boundary setting. Narrative Note: []
--- NOTE | 2019-08-20 16:09 | BH.TPR ---
Treatment Plan Review Date of Treatment Plan Review:: 08/20/19
--- NOTE | 2019-08-25 09:02 | BH.SGPN.GN ---
This psychotherapy group was provided via telehealth using two-way, real-time interactive telecommunication technology between the patients and the provider.?The interactive telecommunication technology included audio and video.? ?The patient was offered telemedicine as an option for care delivery during the COVID-19 pandemic and consented to this option. ?Patient location: [place] ?Provider located at [facility] Behaviors/Verbalizations/Mental Status: []Client alert and oriented, casual dress. Eye contact good. Motor activity appropriate. Speech within normal limits. Affect congruent-tearful, mood dysthymic. Thoughts linear, logical, no signs of hallucinations or delusions. Reviewed client?s symptom tracker, no signs of suicidal ideation, plan, or intent as of today. Client Response/Progress/Benefit: []Client responded well to session, more quiet than usual and tearful, but client still participating. Client reports feeling down today after having a not very good weekend. Client shared she had a setback this weekend with not managing her emotions well and now client is beating herself up over it. Client received kind words and encouragement from peers who helped client challenge her negative thoughts of self. Client was encouraged to remind herself how far she has come in her mental health journey and to practice self-compassion. Client stated her positive today is that she came to group and that she made dinner for her father for father's day. Appeared to benefit from challenging negative thoughts in the moment and receiving supportive statements. Will continue IOP tx to help client bounce back from this setback and to reinforce healthy coping skills to promote mood stability. Narrative Note: []
--- NOTE | 2019-08-25 11:15 | BH.SGPN.GN ---
This psychotherapy group was provided via telehealth using two-way, real-time interactive telecommunication technology between the patients and the provider. The interactive telecommunication technology included audio and video. The patient was offered telemedicine as an option for care delivery during the COVID-19 pandemic and consented to this option. Patient location: [place] Provider located at [facility] Behaviors/Verbalizations/Mental Status: []Client alert and oriented, casually dressed, hygiene appeared to be tended to. Eye contact good. Motor activity appropriate. Speech within normal limits. Affect unable to gather due to being telehealth for COVID-19 protocol, mood anxious and dysthymic. Thoughts linear, logical, no signs of hallucinations or delusions Client Response/Progress/Benefit: []Client receptive of session, engaged and positively contributing to discussion. Engaged in group discussion on the various areas of self-care, benefits, and various types of self-care activities for each area. Client completed self-assessment activity on he own utilization of the different areas of self-care and was able to identify current practices she actively practices and areas she can improve upon. Client reported she can improve her emotional, physical, and psychological self-care. Client stated she wants to work on practicing STOPP acronym as she often struggles with emotion regulation and would like to improve ability to calm herself prior to reacting to others. Client appeared to benefit from increasing awareness of how she can improve self-care balance. Progress noted as client has been able to increase self-awareness and begin to learn healthy coping skills, though continues to struggle at times with boundaries and healthy communication. Will continue IOP tx to decrease negative thoughts, reduce depression and anxiety, and improve mood stability. Narrative Note: []
--- NOTE | 2019-08-25 14:47 | BH.MDN ---
Multi-Disciplinary Note - Note 45-min Individual Time Started:: 12:13 Date: 08/25/19 Time Stopped:: 13:00
--- NOTE | 2019-08-27 10:25 | BH.SGPN.GN ---
Behaviors/Verbalizations/Mental Status: []Client alert and oriented, neatly dressed and groomed. Eye contact good. Motor activity appropriate. Speech within normal limits. Affect congruent to mood, mood euthymic. Thoughts linear, logical, no signs of hallucinations or delusions. Client Response/Progress/Benefit: []Client was an engaged participant throughout group session AEB client contributing to discussion of healthy versus unhealthy coping skills. Client connected with the quote and identified that the ?load? people carry are one?s stressors. Group identified unhealthy coping skills which included; avoidance, isolation, drugs and alcohol, denial, and taking emotions out on others. Client has shared that she used to take her emotions out on her frequently, but she is getting better at not doing that now. Group reported people turn to unhealthy skills because of habit and learned behaviors. Participated in the activity and discussed the importance of creating a strong foundation of healthy coping skills in order to manage life stressors. Client seemed to benefit from increased awareness of importance of increasing healthy coping skills and consequences of utilizing unhealthy coping skills. Client will continue IOP tx to improve emotional regulation, reduce anxiety and irritability, and promote gains. Narrative Note: []
--- NOTE | 2019-09-02 14:49 | BH.MDN ---
Multi-Disciplinary Note - Note 30-min Individual Time Started:: 11:30 Date: 09/02/19 Time Stopped:: 12:00
== END 2019-09-02 23:59 ==
LOC: BHIOP 09:00
PROVIDERS: PCP Family Medicine; Referring Provider Psychiatry & Neurology Psychiatry; Visit Provider Psychiatry & Neurology Psychiatry
DX: F33.2 Major depressive disorder, recurrent severe without psychotic features (principal); F41.1 Generalized anxiety disorder; I10 Essential (primary) hypertension; Z79.899 Other long term (current) drug therapy; Z72.89 Other problems related to lifestyle
CPT/HCPCS: H0035; H2012; 90832; 90834; 90853

== ENCOUNTER 2019-09-04 09:00 | Outpatient (RCR) | payer OTHER, SELFPAY ==
[2018-09-24 13:21] VITALS: BMI 39.0
[2019-09-03 00:31] VITALS: BP 138/88; PULSE 78
--- NOTE | 2019-09-04 10:19 | BH.SGPN.GN ---
This psychotherapy group was provided via telehealth using two-way, real-time interactive telecommunication technology between the patients and the provider. The interactive telecommunication technology included audio and video. The patient was offered telemedicine as an option for care delivery during the COVID-19 pandemic and consented to this option. Patient location: [place] Provider located at [facility] Behaviors/Verbalizations/Mental Status: []Client alert and orient. Appearance casual and appropriately groomed. Speech an appropriate rate and tone. Motor activity WNL. Mood anxious, affect congruent to mood. No evidence of delusion or hallucinations.? Client Response/Progress/Benefit: []Client responded well to session, attentive and contributing at times. Group discussed benefits of healthy communications on mental health which included: getting help, better relationships, less misinterpretations, and improved emotional regulation. Group additionally discussed potential barriers to communication including: shutting down, tone of voice, assumptions, yelling, passive aggressive behaviors, and poor emotional regulation. Attentive during psychoeducation on the four communication styles. Client self-reports identifying most with the aggressive and passive-aggressive communication styles. Client shared ?aggressive is self-sabotage? as it negatively impacts client?s mental health. Progress noted in increased insight into personal communication styles and barriers. Client to continue in IOP tx to promote healthy changes and to further improve emotional regulation skills. Narrative Note: []
--- NOTE | 2019-09-05 09:00 | BH.SGPN.GN ---
This psychotherapy group was provided via telehealth using two-way, real-time interactive telecommunication technology between the patients and the provider. The interactive telecommunication technology included audio and video. The patient was offered telemedicine as an option for care delivery during the COVID-19 pandemic and consented to this option. Patient location: [place] Provider located at [facility] Behaviors/Verbalizations/Mental Status: [] Client alert and oriented, casual dress. Eye contact good. Motor activity appropriate. Speech within normal limits. Affect unable to gather due to client participating via telehealth, mood anxious. Thoughts linear, logical, no signs of hallucinations or delusions. Reviewed client?s symptom tracker, no signs of suicidal ideation, plan, or intent as of today. Client Response/Progress/Benefit: [] Pt responded well to session, providing feedback to peers. Reports feeling anxious today. Pt indicated that she recently made the hard but necessary decision to divorce her and is anxious about all of the unknowns involved. Shared this as her current stressor as she wants to be able to move forward without additional drama, however is struggling due to her not adjusting to the news well. Expressed that she has been able to focus on her own self-care over the last few days which has helped. Identified this as a current mental health win. Additional win noted as making plans to spend time with healthy supports today rather than ruminate on her current stressors. Progress noted in pt ability to establish healthier boundaries and self-reported improved mental health sx. Will continue IOP tx to promote more consist mood stability, improve daily functioning, and reduce intensity of symptoms. Narrative Note: []
--- NOTE | 2019-09-08 09:05 | BH.SGPN.GN ---
Behaviors/Verbalizations/Mental Status: [] Eye contact is good. Motor activity is appropriate. Appearance is casual. Speech is Appropriate. Mood is euthymic. Affect is full. Thoughts are linear and logical. No evidence of psychosis. Reviewed daily check in sheet and no reports of suicidal ideations or intent. Client Response/Progress/Benefit: [] Pt participated at times during group discussions. Emotion for today is anxious. Pt shared that she was able to enjoy her weekend and spent time with family camping. Utilizing coping skills and thoughts reframing. Is going through a divorce and is starting to accept this and the benefits. Initially the break-up was very intense with significant conflict however this is improving. Shared the benefits of this program however is anxious that she is discharging this week due to significant stressors as well as linking with a new therapist. Talked about the progress that she has made and reports being more confidence in her ability to manage her emotions, thoughts, and stressors. Progress noted per pt report. Plan is to discharge from [facility] this week. Narrative Note: [] This psychotherapy group was provided via telehealth using two-way, real-time interactive telecommunication technology between the patients and the provider.?The interactive telecommunication technology included audio and video.? ?The patient was offered telemedicine as an option for care delivery during the COVID-19 pandemic and consented to this option. ?Patient location: [place] ?Provider located at [facility]
--- NOTE | 2019-09-08 11:15 | BH.SGPN.GN ---
This psychotherapy group was provided via telehealth using two-way, real-time interactive telecommunication technology between the patients and the provider.?The interactive telecommunication technology included audio and video.? ?The patient was offered telemedicine as an option for care delivery during the COVID-19 pandemic and consented to this option. ?Patient location: [place] ?Provider located at [facility] Behaviors/Verbalizations/Mental Status: []Client alert and oriented, casually dressed, hygiene appeared to be tended to. Eye contact good. Motor activity appropriate. Speech within normal limits. Affect congruent to mood, mood anxious and euthymic. Thoughts linear, logical, no signs of hallucinations or delusions Client Response/Progress/Benefit: []Client responded well to session, attentive and sharing insight with peers. Group discussed the negative consequences of not acknowledging one?s strengths. Connected with the benefits of recognizing personal strengths on improving mental health which included: increased self-confidence, increased willingness to try new things, and better management of symptoms. Client able to identify personal strengths she possesses which includes: honesty, persistence, patience, and being open to feedback. Client reported identified personal strengths have helped client in her mental health journey. Client shared her strengths have helped client communicate her needs, set boundaries, and set realistic expectations with herself. Group discussed strategies to help them acknowledge strengths more often. Appeared to benefit from recognizing personal strengths and identifying strategies to increase recognition of strengths. Will continue IOP tx to promote gains and improve use of healthy coping skills aftercare. Narrative Note: []
--- NOTE | 2019-09-10 10:54 | BH.MDN ---
Multi-Disciplinary Note - Note 30-min Individual Time Started:: 09:19 Date: 09/10/19 Purpose of session/treatment goals addressed:: Purpose of session was to discuss pt's treatment progress since starting IOP, identify strategies to help maintain progress, and discuss aftercare plan. Eye Contact:: Good Motor Activity:: Appropriate Appearance:: Casual Speech:: Appropriate Mood:: Euthymic Affect:: Congruent Thoughts:: Linear, Logical, No evidence of hallucinations/delusions noted Staff Interventions:: Therapist used open ended questions to elicit pt's current symptoms and stressors. Therapist elicited pt's thoughts on her treatment progress since starting IOP. Therapist collaborated with pt Time Stopped:: 09:45
--- NOTE | 2019-09-10 11:19 | BH.SGPN.GN ---
Behaviors/Verbalizations/Mental Status: [] Client alert and oriented, casually dressed and groomed. Eye contact fair to good. Motor activity appropriate, though difficult to determine as client attending via telehealth. Speech within normal limits. Affect unable to gather due to client attending via telehealth. mood euthymic. Thoughts linear, logical, no signs of hallucinations or delusions. Client Response/Progress/Benefit: [] Pt was engaged throughout AEB providing input and taking notes during discussion. Pt helped the group identify internal consequences of ignoring or not managing stressors resulting in anger. Personal consequences identified as problems not getting solved, increased depression, and guilt. Pt brainstormed with group healthy coping skills for better managing anger which included: deep breathing, music, exercise, taking breaks, and talking to a healthy support. Pt selected opposite action and healthy distraction as the skills client wants to incorporate this week to manage anger. Pt was also interested in grounding and exercise to manage anger. Pt appeared to benefit from identifying different techniques to manage anger as well as gaining awareness of warning signs. Progress noted in pt self-report of improved boundaries and reduced mental health sx. Given progress, pt to discharge from [facility] and is recommended continued outpatient counseling to maintain gains, further improve emotion regulation, and prevent decompensation. Narrative Note: []
--- NOTE | 2019-09-10 15:09 | BH.DS ---
Discharge Summary - Demographics Date of Admission:: 07/22/19 Discharge Date: 09/10/19 Presenting Problems at Admission:: Pt was referred by a coworker to the [facility] program for symptoms of erratic moods with anger. At admission pt reported feeling depressed at times for several days and had a hard time functioning at work or with people. Her symptoms had worsened in the 6 months prior to admission because her is an alcoholic and he had been increasing his alcohol use over the last 6 months after the of 2 people in his extended family. At admission pt endorsed depressed mood, sadness, crying, decreased motivation, anhedonia. Passive thoughts of in which she would not care if she . Denied intention or plan. Endorsed rumination and daily anxiety. Discharge Diagnoses:: F33.2 Major depressive disorder, recurrent, severe without psychosis; generalized anxiety disorder; alcohol use disorder Reason for Discharge:: Pt has made signficant treatment progress and no longer meets criteria for [facility] level of care. - Treatment Progress During Treatment & Response: Progress noted as evidenced by pt's scores on DSM 5 cross cutting measure. Pt's scores indicate a 62.5% decrease in depressive symptoms, a 45% decrease in anxious symptoms and an overall 41.5% reduction in symtpoms compared to intake DSM 5 scores. Pt consistently attended [facility] sessions, often was engaged in sessions AEB active participation and frequently followed through with homework. Issues Still to be Addressed:: Pt could benefit from continued reinforcement of healthy coping skills, increasing self-confidence and challenging negative thought patterns. Pt also could benefit from additional support while making significant life change of her . Discharge Recommendations/Instructions:: Pt had been provided with several referrals to outpatient counselors, but has not scheduled an appointment. Pt stated she will contact [facility] to schedule a individual counseling session. Pt will follow up with PCP for medication management. Discharge Handout: Complete Discharge Handout with client on aftercare options and continuity of care.
== END 2019-09-10 14:00 | disposition home or self-care (01) ==
LOC: BHIOP 09:00
PROVIDERS: PCP Family Medicine; Referring Provider Psychiatry & Neurology Psychiatry; Visit Provider Psychiatry & Neurology Psychiatry
DX: F33.2 Major depressive disorder, recurrent severe without psychotic features (principal); F41.1 Generalized anxiety disorder; Z72.89 Other problems related to lifestyle
CPT/HCPCS: H0035; 90832; 90853

== ENCOUNTER → 2020-07-09 08:08 | Outpatient (CLI) | payer OTHER, SELFPAY ==
[2018-09-24 13:21] VITALS: BMI 39.0
[2020-07-09 11:17] LABS: AST(SGOT) 14 U/L (15-37); Alanine Aminotransfer ALT/SGPT 27 U/L (13-56); Albumin, Serum 3.6 g/dL (3.2-5.0); Alkaline Phosphatase 64 U/L (45-117); Anion Gap 4 (5-15); BUN 18 mg/dL (7-18); BUN/Creat Ratio 21.4 RATIO (10-20); Calcium,Total 8.6 mg/dL (8.5-10.1); Chloride 111 mmol/L (98-107); Cholesterol 127 mg/dL (200); Creatinine, Serum 0.84 mg/dL (0.55-1.02); EST Glomerular Filtration Rate 81 mL/min (>60); Est Glom Filt Rate - Afr Amer 97 mL/min (>60); Globulin 3.5 g/dL (2.2-4.2); Glucose 109 mg/dL (74-106); High Density Lipoprotein 26 mg/dL; Magnesium 2.1 mg/dL (1.6-2.6); Potassium 3.9 mmol/L (3.5-5.1); Protein, Total 7.1 g/dL (6.4-8.2); Sodium Level 141 mmol/L (136-145); Thyroid Stim Hormone (TSH) 1.26 uIU/mL (0.358-3.74); Triglycerides 231 mg/dL; Very Low Density Lipoprotein 46 mg/dL (5-40)
== END ==
PROVIDERS: PCP Family Medicine; Referring Provider Family Medicine; Visit Provider Family Medicine
DX: R00.2 Palpitations (principal); Z13.220 Encounter for screening for lipoid disorders
CPT/HCPCS: 36415; 80053; 80061; 83735; 84443

== ENCOUNTER 2020-09-21 04:42 | Emergency (ER) | payer OTHER, SELFPAY ==
[2018-09-24 13:21] VITALS: BMI 39.0
[2020-09-21 04:43] VITALS: PULSE 83; RESP 20; TEMP 35.9; O2SAT 95; BMI 39.4
[2020-09-21 04:45] VITALS: BP 124/99
--- NOTE | 2020-09-21 04:51 | CT_ITS ---
STUDY: CT ABDOMEN AND PELVIS WITHOUT CONTRAST REASON FOR EXAM: Female, 40 years old. abd pain RADIATION DOSAGE (If Supplied By Facility): CTDIvol = ( 22.55 ) mGy, DLP = ( 1200.02 ) mGycm TECHNIQUE: Transaxial images were obtained from the dome of the diaphragm to the symphysis pubis without oral contrast, and without intravenous contrast. Sagittal and coronal images were reconstructed. Individualized dose optimization techniques were used for this CT. COMPARISON: None. FINDINGS: The visualized lung bases are unremarkable. The visualized portions of the heart are within normal limits. Normal liver. There is non-visualization of the gallbladder, which may be secondary to either contraction or a prior cholecystectomy. Normal spleen. Normal pancreas. Normal bilateral adrenal glands. Normal right kidney. Normal left kidney. Normal visualized stomach. Normal small intestine. Normal colon. The appendix is visualized and appears normal. Normal abdominal aorta. Normal inferior vena cava. Normal retroperitoneum. Normal urinary bladder. Normal visualized uterus. Normal abdominal wall. Normal osseous structures. CT/Abdomen/Pelvis without Cont IMPRESSION: Normal unenhanced CT of the abdomen and pelvis. Electronically Signed: Rony Barry DO at 6:25 EDT Tel , Service support ,
--- NOTE | 2020-09-21 04:55 | EX.ED.DYSGE1 ---
HPI History of Present Illness Chief Complaint: Abd Pain Informant: patient Onset/Context/Timing Onset: Today (30 minutes) Context: Sudden Onset Current Severity: Severe Maximum Severity: Severe Narrative Narrative: Patient presents with 30 minutes of severe lower abdominal pain. She states it feels worse in the right lower quadrant but is so severe over the lower abdomen. Pain came on suddenly and dropped her to her knees. She did have vomiting. She has not been able to find a position of comfort. PFSH PFS Medical History Alcohol use disorder Generalized anxiety disorder Major depressive disorder, recurrent severe without psychotic features Ovarian cyst Home Medications pantoprazole 40 mg PO DAILY 03/19/18 [History Last Taken Unknown] cetirizine 10 mg capsule 10 mg PO DAILY 09/23/18 [History Last Taken Unknown] venlafaxine 75 mg PO DAILY 30 Days #30 cap.er.24h 08/13/19 [Rx Last Taken Unknown] hydrocodone-acetaminophen 1 tab PO Q6H PRN 3 Days #10 tab 09/21/20 [Rx Last Taken Unknown] ondansetron 4 mg PO Q8H PRN #10 tab 09/21/20 [Rx Last Taken Unknown] Allergy/AdvReac Type Severity Reaction Status Date / Time latex Allergy Swelling Verified 11/13/13 15:13 naproxen Allergy Other Verified 11/13/13 15:13 clonazepam [From Klonopin] AdvReac dizziness Verified 09/23/18 16:11 Surgical History (Updated 09/21/20 @ 04:[address] Gege Kirby MD) History of cholecystectomy History of right oophorectomy Hx of tonsillectomy Social History Smoking Status: Current every day smoker tobacco type: cigarettes ROS ROS ED Constitutional Constitutional ED: Denies chills or fever(s) Eyes Eyes: Denies change in vision ENT ENT ED: Denies sore throat Cardiovascular Cardiovascular: Denies chest pain Respiratory/Chest Respiratory/Chest: Denies cough or dyspnea Gastrointestinal Gastrointestinal: Reports abdominal pain, nausea and vomiting; Denies diarrhea Genitourinary Genitourinary ED: Denies dysuria or hematuria Musculoskeletal Musculoskeletal: Reports back pain Integumentary Denies rash Neurologic Neurologic: Denies headache(s) or weakness Psychiatric Psychiatric: Denies anxiety or depression Endocrine Endocrinology: Denies polydipsia or polyuria Allergic/Immunologic Allergic/Immunologic ED: Denies urticaria EXAM Physical Exam Const Vital Signs: 09/21/20 04:43 09/21/20 04:45 Temperature 96.7 F L Temperature Source Temporal Pulse Rate 83 Respiratory Rate 20 H Blood Pressure 124/99 H Blood Pressure Mean 107 Pulse Ox 95 Oxygen Delivery Method Room Air Positive well nourished and well developed General Appearance ED: well developed HEENT Reports normocephalic and head/scalp atraumatic Eyes PERRL and EOMs intact bilaterally Neck supple Chest Wall inspection of chest normal and palpation of chest normal Resp normal respiratory effort and clear to auscultation bilaterally Cardio regular rate and regular rhythm GI Auscultation: hypoactive bowel sounds Palpation: soft and tender other (Mild lower abdominal tenderness to palpation. No guarding or rebound.) Extremity normal to inspection Neuro oriented x3 Sensorium / Orientation: alert Psych Mood & Affect: anxious and tearful Skin no rashes or lesions noted MDM MDM MDM Narrative Medical decision making narrative: Patient was given Toradol, Dilaudid, Zofran, and IV fluids. Labs, urinalysis, CT flank is obtained. Lab Data Attestation: I reviewed the patient's lab results. Labs: Laboratory Results - last 24 hr 09/21/20 09/21/20 09/21/20 04:45 04:46 04:46 WBC 14.5 H RBC 4.46 Hgb 13.4 Hct 40.5 MCV 90.8 MCH 30.0 MCHC 33.1 RDW Std Deviation 43.2 RDW Coeff of Krishna 13.2 Plt Count 261 MPV 9.7 Immature Gran % (Auto) 0.400 Neut % (Auto) 59.8 Lymph % (Auto) 32.1 [place] % (Auto) 7.2 Eos % (Auto) 0.1 Baso % (Auto) 0.4 Absolute Neuts (auto) 8.6 H Absolute Lymphs (auto) 4.65 H Nucleated RBC % 0 Differential Comment SCANNED Atypical Lymphocytes RARE Sodium 141 Potassium 3.9 Chloride 107 Carbon Dioxide 28.0 Anion Gap 6 BUN 17 Creatinine 1.08 H Estim Creat Clear Calc 71.25 Est GFR (MDRD) Af Amer 73 Est GFR (MDRD) Non-Af 60 BUN/Creatinine Ratio 15.7 Glucose 120 H Calcium 8.8 Total Bilirubin 0.20 Direct Bilirubin 0.09 AST 13 L ALT 30 Alkaline Phosphatase 60 Total Protein 7.4 Albumin 3.6 Globulin 3.8 Lipase 500 H Serum , Qual Urine Color Urine Clarity Urine pH Ur Specific [place] Urine Protein Urine Glucose (UA) Urine Ketones Urine Occult Blood Urine Nitrite Urine Bilirubin Urine Urobilinogen Ur Leukocyte Esterase Urine RBC Urine WBC Ur Squamous Epith Cells Other Crystals Urine Bacteria Urine Mucus 09/21/20 09/21/20 04:46 05:29 WBC RBC Hgb Hct MCV MCH MCHC RDW Std Deviation RDW Coeff of Krishna Plt Count MPV Immature Gran % (Auto) Neut % (Auto) Lymph % (Auto) [place] % (Auto) Eos % (Auto) Baso % (Auto) Absolute Neuts (auto) Absolute Lymphs (auto) Nucleated RBC % Differential Comment Atypical Lymphocytes Sodium Potassium Chloride Carbon Dioxide Anion Gap BUN Creatinine Estim Creat Clear Calc Est GFR (MDRD) Af Amer Est GFR (MDRD) Non-Af BUN/Creatinine Ratio Glucose Calcium Total Bilirubin Direct Bilirubin AST ALT Alkaline Phosphatase Total Protein Albumin Globulin Lipase Serum , Qual NEGATIVE Urine Color Yellow Urine Clarity Clear Urine pH 6.0 Ur Specific [place] 1.020 Urine Protein 30 H Urine Glucose (UA) Normal Urine Ketones Negative Urine Occult Blood 25 H Urine Nitrite Negative Urine Bilirubin Negative Urine Urobilinogen 1 H Ur Leukocyte Esterase 25 H Urine RBC 0 SEEN Urine WBC 0-5 SEEN Ur Squamous Epith Cells 0-5 SEEN Other Crystals Urine Bacteria 1+ Urine Mucus 1+ Radiography Diagnostic Testing: Radiology Impression Abdomen/Pelvis CT 09/21/20 04:51 IMPRESSION: Normal unenhanced CT of the abdomen and pelvis. Electronically Signed: Rony Barry DO at 6:25 EDT Tel , Service support , Treatment and Re-Evaluation Comments:: Patient's pain was significantly improved after initial analgesics. After returning from CT scan patient did return and she did require second dose of pain medication. Lab work is discussed with her. Patient has had a mildly elevated white count the last several times that she had labs drawn over the last 3 years. Renal function is unremarkable. LFTs are normal. Lipase is elevated at 500, not twice the upper limit of normal that would typically be indicative of pancreatitis. Urinalysis shows no overt sign of infection. [address] scan is read as unremarkable. I did review the images myself. I do not see obvious evidence of radiopaque kidney stone or evidence of hydronephrosis. We did discuss that there may be a possibility of a radiolucent kidney stone causing her some issues. Her lipase is elevated and her symptoms may be secondary to this as well. Patient will be discharged with analgesics. She will follow bland diet. She understands that if symptoms are not improved or she is not able to tolerate the oral pain medication at home she will require return visit and admission. Discharge Plan Triage Chief Complaint: Abd Pain ED Provider: Gege Kirby Dx/Rx/DC Orders Clinical Impression: Abdominal pain, Elevated lipase Instructions: ED Abdominal Pain Unkn Cause Fem Prescriptions: New hydrocodone-acetaminophen 5-325 mg tablet 1 tab PO Q6H PRN (Reason: pain) 3 Days Qty: 10 RF: 0 ondansetron 4 mg tablet,disintegrating 4 mg PO Q8H PRN (Reason: nausea and vomiting) Qty: 10 RF: 0 No Action Zyrtec 10 mg capsule 10 mg PO DAILY RF: 0 pantoprazole 40 MG tablet 40 mg PO DAILY RF: 0 venlafaxine 75 MG capsule,extended release 24hr 75 mg PO DAILY 30 Days Qty: 30 RF: 1 Stand Alone Forms: ED Work / School Excuse Primary Care Provider: Tereza Nguyen Referrals: Tereza Nguyen MD [Primary Care Provider] - 3-5 Days if not improving Disposition Disposition: Home, Self Care
[2020-09-21] MEDS: Ondansetron 4 MG/2 ML Vial IV (05:01)
[2020-09-21] MEDS: HYDROmorphone 1 MG/ML Syringe 0.5 MG IV (05:01)
[2020-09-21] MEDS: Ketorolac 15 MG/ML Vial IV (05:01)
[2020-09-21 05:03] LABS: Absolute Lymphocyte Count 4.65 X10^3/uL (0.83-4.51); Absolute Neutrophil Count 8.6 X10^3/uL (2.0-7.7); Basophil# 0.06 X10^3/uL; Basophil% 0.4 % (0-1); Eosinophil# 0.02 X10^3/uL; Eosinophils% 0.1 % (0-5); Hematocrit 40.5 % (37-47); Hemoglobin 13.4 g/dL (12.0-15.0); Lymphocyte # 4.65 X10^3/ul (0.83-4.51); Lymphocyte % 32.1 % (19-41); Mean Corp Hgb Conc 33.1 g/dL (32-36); Mean Corpuscular Volume 90.8 fL (81-99); Mean Platelet Vol. 9.7 fl (6.2-12.0); Monocyte# 1.04 X10^3/uL; Monocyte% 7.2 % (0-10); NRBC Flagged by Analyzer 0 % (0-5); Neutrophil # 8.64 X10^3/uL (2.7-7.7); Neutrophil % 59.8 % (47-70); POSITIVE MORPHOLOGY YES; Platelet Count 261 K/mm3 (150-450); RBC Distribution Width CV 13.2 % (11.6-14.6); RBC Distribution Width SD 43.2 fl (35.1-43.9); Red Blood Count 4.46 M/mm3 (4.2-5.4); White Blood Count 14.5 K/mm3 (4.4-11.0)
[2020-09-21 05:06] LABS: Differential Indicated SCAN CRITERIA MET
[2020-09-21 05:10] LABS: Internal QC Validated? YES +Cl - CLEAR BKGD; Pregnancy, Serum, hCG Quali. NEGATIVE Negative
[2020-09-21 05:17] LABS: AST(SGOT) 13 U/L (15-37); Alanine Aminotransfer ALT/SGPT 30 U/L (13-56); Albumin, Serum 3.6 g/dL (3.2-5.0); Alkaline Phosphatase 60 U/L (45-117); Anion Gap 6 (5-15); BUN 17 mg/dL (7-18); BUN/Creat Ratio 15.7 RATIO (10-20); Bilirubin, Direct 0.09 mg/dL (0.00-0.30); Calcium,Total 8.8 mg/dL (8.5-10.1); Chloride 107 mmol/L (98-107); Creatinine, Serum 1.08 mg/dL (0.55-1.02); EST Glomerular Filtration Rate 60 mL/min (>60); Est Glom Filt Rate - Afr Amer 73 mL/min (>60); Estimated Creatinine Clearance 71.25 ml/min; Globulin 3.8 g/dL (2.2-4.2); Glucose 120 mg/dL (74-106); Potassium 3.9 mmol/L (3.5-5.1); Protein, Total 7.4 g/dL (6.4-8.2); Sodium Level 141 mmol/L (136-145)
[2020-09-21 05:37] LABS: Lipase 500 U/L (73-393)
[2020-09-21 05:38] LABS: Atypical Lymphocyte RARE %; Differential Comment SCANNED
[2020-09-21 05:39] LABS: Red Blood Cells-Urine 0 SEEN /hpf (0-5)
[2020-09-21 05:42] LABS: Color, Urine Yellow (Yellow); Glucose, Dipstick Normal (Normal); Ketone-Dipstick Negative (Negative); Leukocyte Esterase-Dipstick 25 /ul (Negative); Nitrite-Dipstick Negative (Negative); Occult Blood-Urine 25 /ul (Negative); Protein-Dipstick 30 mg/dl (Negative); Urine Bilirubin Dipstick Negative (Negative); Urine Clarity Clear (Clear); Urine Urobilinogen 1 mg/dl (Normal)
[2020-09-21 06:26] LABS: White Blood Cells 0-5 SEEN /hpf (0-5)
[2020-09-21] MEDS: 0.9% Normal Saline 1,000 ML 150 ML IV (06:26)
[2020-09-21] MEDS: HYDROmorphone 0.5 MG/0.5 ML SYRINGE IV (06:26)
[2020-09-21 06:27] LABS: Bacteria 1+ /hpf (None Seen); Mucous, Urine 1+ /hpf (<or=2+); Squamous Epithelial Cells - UA 0-5 SEEN /hpf (5-10)
[2020-09-21 07:22] VITALS: BP 131/70; PULSE 61; RESP 16; O2SAT 98
== END 2020-09-21 07:23 | disposition home or self-care (01) ==
PROVIDERS: Emergency Provider Emergency Medicine; PCP Family Medicine
DX: R10.30 Lower abdominal pain, unspecified (principal); R74.8 Abnormal levels of other serum enzymes; F41.1 Generalized anxiety disorder; F33.2 Major depressive disorder, recurrent severe without psychotic features; Z79.899 Other long term (current) drug therapy; F17.210 Nicotine dependence, cigarettes, uncomplicated
CPT/HCPCS: 74176; 80048; 80076; 81001; 83690; 84703; 85025; 96361; 96374; 96375; 96376; 99283; J7030; A4216; J2405

== ENCOUNTER → 2020-12-06 12:26 | Outpatient (CLI) | payer OTHER, SELFPAY | PROVIDERS: PCP Family Medicine; Referring Provider Family Medicine; Visit Provider Family Medicine | DX: Z00.00 Encounter for general adult medical examination without abnormal findings (principal) ==

== ENCOUNTER → 2020-12-16 12:16 | Outpatient (CLI) | payer OTHER, SELFPAY ==
--- NOTE | 2020-12-16 12:18 | BI_ITS ---
MAMMOGRAPHY - BILATERAL SCREENING REASON FOR EXAM: Female, 40 years old. Routine annual screening examination. PERTINENT HISTORY: Aunt with breast cancer. Clear nipple discharge. TECHNIQUE: Digital bilateral breast shira (3D mammographic acquisition) in the CC and MLO projections. 2-D mediolateral oblique (MLO) and craniocaudad (CC) views of both breasts were obtained. CAD: Full Field Digital Mammography with Computer Added Detection was performed. COMPARISON: None. Baseline examination. FINDINGS: Breast Composition: There are scattered areas of fibroglandular density. There are no dominant masses or suspicious calcifications. There is a 1.2 cm x 2.8 cm well-defined nodule in the left axillary region suggestive of a small lymph node. There is a 3.6 mm well-defined nodule in the deep inferior medial aspect of the left breast. Correlation with ultrasound is recommended. No other significant abnormalities are identified. BI/SCRN MAMM (CAD)W/SHIRA BILAT IMPRESSION: 3.6 mm well-defined nodule in the deep inferior medial aspect of the left breast. Ultrasound is recommended. There is a 1.2 cm x 2.8 cm well-defined nodule in the left axillary region suggestive of a lymph node. Correlation with ultrasound is recommended as well. ASSESSMENT CATEGORY: BIRADS Category 0: Incomplete. Need additional imaging evaluation. A letter regarding these results will be sent to the patient by the facility within 30 days. Approximately 10% of breast cancers are not detected by mammography. A normal mammogram should not delay biopsy of a clinically suspicious abnormality. [id number] Electronically Signed: Socrates Anaya MD at 13:15 EDT , Service support ,
== END ==
PROVIDERS: PCP Family Medicine; Referring Provider Family Medicine; Visit Provider Family Medicine
DX: Z12.31 Encounter for screening mammogram for malignant neoplasm of breast (principal)
CPT/HCPCS: 77063; 77067

== ENCOUNTER → 2020-12-21 08:00 | Outpatient (CLI) | payer OTHER, SELFPAY ==
--- NOTE | 2020-12-21 08:02 | US_ITS ---
STUDY: ULTRASOUND BREAST - LEFT REASON FOR EXAM: Female, 40 years old. Abnormal screening mammogram. TECHNIQUE: Axial and longitudinal images of the LEFT breast were performed with a high resolution ultrasound transducer. # OF IMAGES: 31 COMPARISON: Comparison is made with prior mammogram dated 12/16/2020. FINDINGS: LEFT Breast: There is a 1.3 cm x 1.2 cm x 0.7 cm benign appearing lymph node in the left axillary region. There is a 6 mm x 5 mm x 3 mm cyst at the 6 o''clock position of the breast at 2 cm from the nipple. There is also evidence of a 2 mm x 2 mm x 2 mm cyst at the 8 o''clock position of the breast at 10 cm nipple. US/Breast Limited Unilateral IMPRESSION: The mammographic abnormality corresponds to a 6 mm x 5 mm x 3 mm cyst at the 6 o''clock is shown to breast at 2 cm from nipple. 1.3 cm x 1.2 cm x 0.7 cm benign-appearing lymph node in the left axilla. 2 mm x 2 mm x 2 mm cyst at the 8 o''clock position breast at 10 signs of nipple. ASSESSMENT CATEGORY: BIRADS Category 2: Benign. A letter regarding these results will be sent to the patient by the facility within 30 days. Electronically Signed: Socrates Anaya MD at 10:12 EDT , Service support ,
== END ==
PROVIDERS: PCP Family Medicine; Referring Provider Family Medicine; Visit Provider Family Medicine
DX: N63.20 Unspecified lump in the left breast, unspecified quadrant (principal)
CPT/HCPCS: 76642

== ENCOUNTER 2021-03-21 10:13 | Outpatient (REF) | payer OTHER, SELFPAY | END 2021-03-21 23:59 | disposition short-term general hospital (02) | LOC: LABSPEC 10:13 | PROVIDERS: PCP Family Medicine | DX: Z20.818 Contact with and (suspected) exposure to other bacterial communicable diseases (principal) | CPT/HCPCS: 87635; U0003; U0005 ==

== ENCOUNTER → 2022-05-30 | Outpatient (CLI) | payer OTHER, SELFPAY ==
[2022-05-30 09:55] LABS: Absolute Lymphocyte Count 2.57 X10^3/uL (0.83-4.51); Absolute Neutrophil Count 6.9 X10^3/uL (2.0-7.7); Basophil# 0.06 X10^3/uL; Basophil% 0.6 % (0-1); Eosinophil# 0.03 X10^3/uL; Eosinophils% 0.3 % (0-5); Hematocrit 40.8 % (37-47); Hemoglobin 13.6 g/dL (12.0-15.0); Lymphocyte # 2.57 X10^3/ul (0.83-4.51); Lymphocyte % 25.1 % (19-41); Mean Corp Hgb Conc 33.3 g/dL (32-36); Mean Corpuscular Volume 92.9 fL (81-99); Mean Platelet Vol. 9.8 fl (6.2-12.0); Monocyte# 0.67 X10^3/uL; Monocyte% 6.5 % (0-10); NRBC Flagged by Analyzer 0 % (0-5); Neutrophil # 6.88 X10^3/uL (2.7-7.7); Neutrophil % 67.2 % (47-70); Platelet Count 231 K/mm3 (150-450); RBC Distribution Width CV 12.6 % (11.6-14.6); RBC Distribution Width SD 43.4 fl (35.1-43.9); Red Blood Count 4.39 M/mm3 (4.2-5.4); White Blood Count 10.2 K/mm3 (4.4-11.0)
[2022-05-30 10:44] LABS: ALB/GLOB Ratio 1.1 RATIO (0.9-2.4); AST(SGOT) 12 U/L (15-37); Alanine Aminotransfer ALT/SGPT 20 U/L (13-56); Albumin, Serum 3.8 g/dL (3.2-5.0); Alkaline Phosphatase 55 U/L (45-117); Anion Gap 6 (5-15); BUN 20 mg/dL (7-18); BUN/Creat Ratio 21.1 RATIO (10-20); Calcium,Total 9.1 mg/dL (8.5-10.1); Chloride 109 mmol/L (98-107); Creatinine, Serum 0.95 mg/dL (0.55-1.02); EST Glomerular Filtration Rate 69 mL/min (>60); Est Glom Filt Rate - Afr Amer 84 mL/min (>60); Globulin 3.6 g/dL (2.2-4.2); Glucose 104 mg/dL (74-106); Magnesium 2.1 mg/dL (1.6-2.6); Potassium 4.1 mmol/L (3.5-5.1); Protein, Total 7.4 g/dL (6.4-8.2); Sodium Level 137 mmol/L (136-145); T4 Free Direct 0.93 ng/dL (0.76-1.46); Thyroid Stim Hormone (TSH) 1.11 uIU/mL (0.358-3.74)
[2022-06-01 09:28] LABS: Anti-Thyroglobulin AB < 1.0 IU/mL (0.0-0.9); Thyroglobulin, Serum Qt. 8.3 ng/mL (1.5-38.5); Thyroid Peroxidase AB < 9 IU/mL (0-34)
== END | disposition home or self-care (01) ==
LOC: MFPLAB 09:09
PROVIDERS: PCP Family Medicine; Visit Provider Family Medicine
DX: R00.2 Palpitations (principal)
CPT/HCPCS: 36415; 80053; 83735; 84432; 84439; 84443; 85025; 86376; 86800

== ENCOUNTER → 2022-11-02 | Outpatient (CLI) | payer OTHER, SELFPAY | END | disposition home or self-care (01) | LOC: LABSPEC 12:28 | PROVIDERS: PCP Family Medicine; Visit Provider Nurse Practitioner Family | DX: R30.0 Dysuria (principal) | CPT/HCPCS: 87086; 87088; 87491; 87591 ==

== ENCOUNTER 2022-12-14 08:08 | Day surgery (SDC) | payer OTHER, SELFPAY ==
--- NOTE | 2022-11-29 13:09 | PCM.HP.BLA ---
History and Physical Date of Admission: 12/14/22 HPI: The patient is a 42 year old female presenting for pre-operative visit. She is scheduled for Hysteroscopy D&C, possible polyp removal and endometrial ablation for menorrhagia on 12/14/22. Procedure discussed along with risks, benefits and complications. Other alternatives discussed for management. Consent form signed? Yes. ? ? PAST MEDICAL HISTORY PAST MEDICAL HISTORY Diagnosis Date ? GERD (gastroesophageal reflux disease) ? ? Obesity, unspecified 07-25-10 ? stated BMI 38.8 Ht: 69 Wt: 263 lbs ? Other acne ? ? Other specified disorder of gallbladder ? ? biliary dyskinesia ? RUQ pain ? ? ? PAST SURGICAL HISTORY PAST SURGICAL HISTORY Procedure Laterality Date ? IUD REMOVAL ? 01/11/2010 ? LAPS SURG CHOLECYSTECTOMY W/CHOLANGIOGRAPHY ? 05/11/09 ? LIG/TRNSXJ FLP TUBE ABDL/VAG APPR UNI/BI ? ? ? Tubal ligation ? OOPHORECTOMY PARTIAL/TOTAL UNI/BI ? ? ? Oophorectomy, right ? TONSILLECTOMY PRIMARY/SECONDARY <AGE 12 ? ? ? Tonsillectomy ? ? ? CURRENT MEDICATIONS Current Outpatient Medications Medication Sig Dispense Refill ? busPIRone HCl 30 mg tablet ? pantoprazole DR (PROTONIX) 40 mg tablet ? Phentermine HCl (ADIPEX-P) 37.5 mg capsule Take 37.5 mg by mouth. ? ? ? OMEPRAZOLE (PRILOSEC ORAL) Take 30 mg by mouth. ? ? ? No current facility-administered medications for this visit. ? ? ALLERGIES: Clonazepam, Latex, and Naproxen Sodium ? PERSONAL HISTORY: SOCIAL HISTORY Social History ? Tobacco Use ? Smoking status: Former ? ? Packs/day: 0.50 ? ? Years: 5.00 ? ? Additional pack years: 0.00 ? ? Total pack years: 2.50 ? ? Types: Cigarettes ? Smokeless tobacco: Never ? Tobacco comments: ? ? quit 11/2013 Vaping Use ? Vaping Use: current everyday user Substance Use Topics ? Alcohol use: Yes ? ? Comment: Occasionally ? Drug use: No ? FAMILY HISTORY: FAMILY HISTORY FAMILY HISTORY Problem Relation Age of Onset ? other (gallbaldder [Other]) Mother ? ? Hypertension Father ? ? other (Kidney Disease [Other]) Maternal Grandmother ? ? POLYCYSTIC KIDNEY= ? Diabetes Paternal Grandmother ? ? Hypertension Paternal Grandmother ? ? Prostate Cancer Paternal Grandfather ? ? Diabetes Paternal Grandfather ? ? Hypertension Paternal Grandfather ? ? other (polycystic ovarian disease [Other]) Maternal Aunt ? ? other (Polycystic Kidney Disease [Other]) Maternal Uncle ? ? ? REVIEW OF SYMPTOMS: GENERAL: denies fevers or chills ENDOCRINOLOGY: has not been on steroids Cardiology : denies palpitations or chest pain Respiratory: denies SOB or cough Hematology: denies history of prolonged bleeding or easy bruising or VTE Allergy: Denies history of personal or family history of allergy to anesthesia ? PHYSICAL EXAMINATION: ? VITALS: Last menstrual period 10/06/2022. ? GENERAL: The patient is well nourished, well hydrated in no acute distress. , The patient is oriented to time, place, and person. NECK: Supple. No lynphadenopathy, normal thyroid, no thyromegaly. LUNGS: Clear to auscultation bilaterally. no wheezes, rhonchi or rales HEART: Regular rate and rhythm, Normal heart sounds, and No murmurs or gallops ? ? ? pelvic US 09/18/22: AUB Impression Normal appearing anteverted uterus that measures 87 mm x 40 mm x 57 mm. The central endometrium complex measures 13.1 mm in combined thickness. The endometrium is thickened and cystic appearing. No abnormal blood flow to suggest a polyp or focal endometrial pathology is observed within the endometrial complex. The left ovary contains multiple small follicular cysts at the periphery of the ovarian stroma. This finding is suggestive of polycystic ovarian syndrome. The right ovary is not visualized. No adnexal masses were observed. There is no free fluid visualized in the peritoneal cavity. ? IMPRESSION: menorrhagia ? PLAN: The risks/benefits/alternatives and personal involved for the planned Hysteroscopy D&C, possible polyp removal and endometrial ablationwere reviewed with the patient. Her questions were answered to her satisfaction and she desires to proceed. Consent was signed. I reviewed with her postop instructions and expectations. ? ? I have reviewed and updated past medical and surgical history, medications and allergies Assessment & Plan Assessment/Plan (1) Menorrhagia:
[2022-12-13 12:23] LABS: Hematocrit 37.8 % (37-47); Hemoglobin 12.1 g/dL (12.0-15.0); Mean Corpuscular Hgb 30.7 pg (27.0-32.0); Mean Corpuscular Volume 95.9 fL (81-99); Mean Platelet Vol. 9.9 fl (6.2-12.0); Platelet Count 229 K/mm3 (150-450); RBC Distribution Width CV 12.5 % (11.6-14.6); Red Blood Count 3.94 M/mm3 (4.2-5.4); White Blood Count 11.3 K/mm3 (4.4-11.0)
[2022-12-14] VITALS (8 sets, daily range): BP systolic 103–133; BP diastolic 48–79; PULSE 48–71; RESP 16–18; TEMP 36.2–36.6; O2SAT 96–100; BMI 33.1
[2022-12-14] MEDS: Lactated Ringers 1,000 ML 15 ML IV (08:44)
[2022-12-14] MEDS: Acetaminophen 500 MG Tablet 1000 MG PO (08:46)
[2022-12-14] MEDS: Ketorolac 30 MG/ML Syringe IV (08:47)
[2022-12-14 09:18] LABS: Internal QC Validated? YES +Cl - CLEAR BKGD; Pregnancy, Urine Negative Negative; Record Kit Lot#,Urine Preg 667200
--- NOTE | 2022-12-14 10:00 | DCINST_ITS ---
Discharge Instructions Diet Discharge Diet: No restrictions Activity Discharge Activity: May Take a Tub Bath (in 1 week) Return to work on:: 12/18/22 May shower in (days): 1 May resume sexual activity in: 1-2 weeks and 2 weeks Lifting Restrictions: none Dressing / Incision Call your doctor if your incision/area has: Sudden Increased Bleeding and Foul Smelling Discharge Call your doctor if you observe: Fever of 101 or Higher and Using more than 1 pad per hour (for 2 hrs in a row) Follow Up Care Please Follow Up With: Cait Jacobson MD When: You do not have to schedule a postop appointment. Call [phone] to make an appointment or with any concerns or send a [employer] message. Test Results: Test results from this visit will be discussed in further detail at your follow- up appointment, if applicable. Discharge Plan Admission Primary Reason for Your Visit: D&C and endometrial ablation Attending Provider: Cait Jacobson Primary Care Provider: Tereza Nguyen Discharge Orders/Prescriptions Prescriptions: Continued Zyrtec 10 mg capsule 10 mg PO DAILY PRN (Reason: allergy symptoms) buspirone 7.5 mg tablet 7.5 mg PO BID Patient Comments: take 2 tablets by mouth twice a day pantoprazole 40 MG tablet 40 mg PO DAILY phentermine [Adipex-P] 37.5 mg capsule 37.5 mg PO DAILY Rx Instructions: must administer 30 minutes before or 1-2 hours after breakfast Referrals / Follow Up: Tereza Nguyen MD [Primary Care Provider] - Disposition Disposition (needs filled in before D/C Order can be placed): Home, Self Care
[2022-12-14] MEDS: Lidocaine 1%/Epi 1:200 (30ml) 30 ML AMPUL (10:05)
--- NOTE | 2022-12-14 10:18 | OP.PCM_ITS ---
Problems Associated Problem List Diagnoses (1) Menorrhagia: Report of Operation Date of Procedure: 12/14/22 Pre-Operative Diagnosis: menorrhagia Post-Operative Diagnosis: same Surgery/Procedure Performed:: hysteroscopy D&C with Keisha endometrial ablation Description of Surgical Findings:: lush endometrium, normal cervix and vagina, no focal abnormalities in the uterus Surgeon: Cait Jacobson brand marketing coordinator: None Type of Anesthesia: MAC/Supplemental/Local Anesthesiologist: Triston Inman Special Medications: none Specimen's removed: endometrial curettings Drains: none Estimated Blood Loss (mL): 10 Fluids Replaced: 700 Description of Procedure: The patient was taken to the OR where she was prepped and draped in dorsal lithotomy position. The weighted speculum was placed in the vagina and the anterior lip of the cervix was grasped with a single-tooth tenaculum. A paracervical block was administered with 1% lidocaine with 1-100,000 epinephrine solution. The cervix was dilated serially with Hegar dilators. The 5mm hysteroscope was placed into the uterine cavity and the above findings were noted. Bilateral tubal ostia were identified. The uterus sounded to 9 cm and the cervical length was 4 cm. The endometrial cavity length was 5 cm. The hysteroscope was removed. A gentle sharp curettage was done of the uterine cavity. The specimen was handed off and sent to pathology. The Keisha device was set to 5 cm. The instrument was then seated into the endometrial cavity and the indicator was in the green. The cervical seal balloon was inflated and the uterine integrity test was passed. The ablation procedure was initiated and completed without interruption. During the ablation procedure gentle traction was held on the tenaculum and the Keisha device was held up against the uterine fundus. When the ablation procedure was completed the Keisha was removed. The tenaculum was removed and the tenaculum site was noted to be hemostatic. All sponge and needle counts were correct. A vaginal sweep was performed by me. The patient was awakened and taken to the recovery room in stable condition. Hysteroscopic ins: 100cc normal saline Hysteroscopic outs:50cc Findings: Endometrial cavity: Normal, no fibroids or polyps noted Cervix: Normal Vagina: Normal Grafts/Implants Used: none Procedure Start Time: 10:05 Procedure Stop Time: 10:13 Complications none Admit VTE Documentation VTE Present on Admission: No VTE Mechan Device Prophylaxis: SCD's VTE Pharm Prophylaxis ordered?: No Reason prophylaxis not ordered:: Procedure Not Indicated
--- NOTE | 2022-12-14 10:20 | EMB_PTH ---
PATIENT: ETHAN SOL [place] [facility] [place] U#:[id number] AGE/SX: 42/F ROOM: RE12/14/[address]: Dr. Cait Jacobson MD : 1980 BED: DIS: 12/14/2022 SPEC #: [id number] RECD: 12/14/22 11:09 STATUS: ADA REElizabeth #: [id number] ROD: 12/14/22 10:[address]: Cait Jacobson DEPT: SURGICAL PATHOLOGY RECD BY: Fara Ann ENTERED: 12/14/22 11:35 SP TYPE: ENDOM BX/C OTHR DR: Dr. Tereza Nguyen MD Tissues: Endometrium, NOS Procedures: Surgery Specimen Level IV HEADER OPERATION: Hysteroscopy, D & C Keisha PRE-OP DIAGNOSIS: Menorrhagia TISSUE SUBMITTED: Endometrial curettings MICROSCOPIC DIAGNOSIS Endometrium, curettings: Disordered and dyssynchronous transition endometrium with glandular and stromal breakdown. Mild chronic endometritis. AM:eliseo 12/15/2022 MICROSCOPIC DESCRIPTION Slides are reviewed. GROSS DESCRIPTION Received in fixative is one container labeled with the patient's name and designated endometrial curettings. The specimen consists of multiple irregular fragments of light smith soft tissue that in aggregate measure 3.0 x 2.2 x 0.2 cm. The specimen is totally submitted in one cassette. / AM:eliseo 12/14/2022 TC:3 CPT: 49944
== END 2022-12-14 11:30 | disposition home or self-care (01) ==
LOC: SDC 08:08 → AC 08:09
PROVIDERS: PCP Family Medicine; Referring Provider Obstetrics & Gynecology; Visit Provider Obstetrics & Gynecology
PROC: 0U5B8ZZ Destruction of Endometrium, Via Natural or Artificial Opening Endoscopic (ICD-10-PCS; CPT 58558; principal; 2022-12-14 10:05)
DX: N71.1 Chronic inflammatory disease of uterus (principal); N92.0 Excessive and frequent menstruation with regular cycle; F17.210 Nicotine dependence, cigarettes, uncomplicated; N83.02 Follicular cyst of left ovary; Z90.49 Acquired absence of other specified parts of digestive tract; Z90.721 Acquired absence of ovaries, unilateral; F41.1 Generalized anxiety disorder; K21.9 Gastro-esophageal reflux disease without esophagitis
CPT/HCPCS: 58563; 00952; 36415; 81025; 85027; 88305; J7120; J2405

== ENCOUNTER → 2023-03-08 | Outpatient (CLI) | payer OTHER, SELFPAY ==
[2023-03-08 12:32] LABS: Absolute Lymphocyte Count 3.06 X10^3/uL (0.83-4.51); Absolute Neutrophil Count 6.6 X10^3/uL (2.0-7.7); Basophil# 0.05 X10^3/uL; Basophil% 0.5 % (0-1); Eosinophil# 0.31 X10^3/uL; Eosinophils% 2.9 % (0-5); Hematocrit 42.8 % (37-47); Hemoglobin 13.7 g/dL (12.0-15.0); Lymphocyte # 3.06 X10^3/ul (0.83-4.51); Lymphocyte % 28.6 % (19-41); Mean Corpuscular Hgb 29.8 pg (27.0-32.0); Mean Corpuscular Volume 93.2 fL (81-99); Mean Platelet Vol. 10.3 fl (6.2-12.0); Monocyte# 0.68 X10^3/uL; Monocyte% 6.3 % (0-10); NRBC Flagged by Analyzer 0 % (0-5); Neutrophil # 6.57 X10^3/uL (2.7-7.7); Neutrophil % 61.3 % (47-70); Platelet Count 247 K/mm3 (150-450); RBC Distribution Width CV 12.9 % (11.6-14.6); RBC Distribution Width SD 44.1 fl (35.1-43.9); Red Blood Count 4.59 M/mm3 (4.2-5.4); White Blood Count 10.7 K/mm3 (4.4-11.0)
[2023-03-08 12:48] LABS: Hemoglobin A1c 5.3 % (3.8-5.6)
[2023-03-08 13:02] LABS: AST(SGOT) 13 U/L (15-37); Alanine Aminotransfer ALT/SGPT 18 U/L (13-56); Alkaline Phosphatase 56 U/L (45-117); Anion Gap 6 (5-15); BUN 18 mg/dL (7-18); BUN/Creat Ratio 17.1 RATIO (10-20); Calcium,Total 9.3 mg/dL (8.5-10.1); Chloride 107 mmol/L (98-107); Creatinine, Serum 1.05 mg/dL (0.55-1.02); EST Glomerular Filtration Rate 62 mL/min (>60); Est Glom Filt Rate - Afr Amer 74 mL/min (>60); Globulin 3.9 g/dL (2.2-4.2); Glucose 113 mg/dL (74-106); Protein, Total 7.9 g/dL (6.4-8.2); Sodium Level 138 mmol/L (136-145); Thyroid Stim Hormone (TSH) 1.16 uIU/mL (0.358-3.74)
== END | disposition home or self-care (01) ==
LOC: MFPLAB 11:13
PROVIDERS: PCP Family Medicine; Visit Provider Nurse Practitioner Family
DX: R63.4 Abnormal weight loss (principal)
CPT/HCPCS: 36415; 80053; 83036; 84443; 85025

== ENCOUNTER → 2023-04-18 | Outpatient (CLI) | payer OTHER, SELFPAY ==
[2023-04-18 12:57] LABS: T4 Free Direct 1.09 ng/dL (0.76-1.46); Thyroid Stim Hormone (TSH) 1.16 uIU/mL (0.358-3.74)
== END | disposition home or self-care (01) ==
LOC: BIMLAB 10:55
PROVIDERS: PCP Family Medicine; Referring Provider Family Medicine; Visit Provider Family Medicine
DX: E88.818 Other insulin resistance (principal)
CPT/HCPCS: 36415; 84439; 84443

== ENCOUNTER 2023-06-20 11:32 | Emergency (ER) | payer OTHER, SELFPAY ==
[2023-06-20 11:33] VITALS: BP 174/86; PULSE 67; RESP 18; TEMP 36; O2SAT 99; BMI 32.3
--- NOTE | 2023-06-20 12:10 | EDS_ITS ---
HPI HPI - Psych History of Present Illness Chief Complaint: Mental Health Informant: patient and friend Onset/Context/Timing Onset: Weeks Context: Gradual Onset Timing: Continuous Current Severity: Moderate Maximum Severity: Moderate Associated Symptoms Associated Symptoms - Psych: Positive for Depressed and Suicidal Thoughts Specific plan (suicidal thought): Jumped out of a car or overdose on Tylenol. Narrative Narrative: 42-year-old female history of depression. Sees a psychiatrist. She was at her office today referred to the emergency department. Recently she is gone downhill in the last 3 months. Her friend is with her who is actually her power of employment law attorney. She has had thoughts of jumping out of a car either overdosing on Tylenol. No prior history of suicide attempts. She is also become paranoid thi nking her family is out to get her or her friend was going to take her to a hit man. She denies hearing voices. She denies any attempt. Prior similar symptoms: Yes Recent Illness/Hospitalization: Yes PFSH PFSH Medical History Alcohol use Galactorrhea Gastric reflux Generalized anxiety disorder History of stress test Insulin resistance Major depressive disorder, recurrent severe without psychotic features Obesity Tobacco use Vapes nicotine containing substance Home Medications pantoprazole 40 mg tablet,delayed release 40 mg PO DAILY 03/19/18 [History Last Taken 12/14/22] lorazepam 1 mg tablet 1 mg PO Q8H PRN anxiety #60 tabs 05/30/23 [Rx Last Taken Unknown] Allergy/AdvReac Type Severity Reaction Status Date / Time phentermine [From Adipex-P] Allergy Severe hallucinati Verified 06/20/23 11:33 ons latex Allergy Swelling Verified 06/20/23 11:33 naproxen Allergy Other Verified 06/20/23 11:33 clonazepam [From Klonopin] AdvReac dizziness Verified 06/20/23 11:33 Surgical History History of cholecystectomy History of right oophorectomy Hx of tonsillectomy Social History adopted: No household members: children number of children: 2 pets and animals: Yes Smoking Status: Current every day smoker tobacco type: e-cigarettes alcohol intake: current substance use type: does not use seatbelt use: always do you feel safe at home: Yes ROS ROS ED ROS Narrative Patient denies recent illness. Review of Systems ROS Unobtainable: Denies due to encephalopathy Constitutional Constitutional ED: Denies chills or fever(s) Eyes Eyes: Denies blurry vision ENT ENT ED: Denies ear pain Cardiovascular Cardiovascular: Denies chest pain or palpitations Respiratory/Chest Respiratory/Chest: Denies cough or dyspnea Gastrointestinal Gastrointestinal: Denies abdominal pain, constipation, diarrhea, melena, nausea or vomiting Genitourinary Genitourinary ED: Denies dysuria or hematuria Musculoskeletal Musculoskeletal: Denies arthralgias, back pain, myalgias or neck pain Integumentary Denies abscess, Abrasions or rash Neurologic Neurologic: Denies headache(s) or paresthesias Psychiatric Psychiatric: Reports depression, suicidal ideation and suicidal thoughts; Denies anxiety Endocrine Endocrinology: Denies polydipsia, polyphagia or polyuria Hematologic/Lymphatic Hematologic/Lymphatic: Denies easy bleeding, easy bruising or lymphadenopathy Allergic/Immunologic Allergic/Immunologic ED: Denies mouth swelling, tongue swelling or urticaria EXAM Physical Exam Narrative Exam Narrative: 42-year-old female no acute distress sitting upright in bed. Calm and co llected. Makes eye contact. Interactive. Friend at bedside. HEENT exam unremarkable. Pupils round and reactive light. No signs of trauma. Neck nontender. No signs of trauma. Lungs clear to auscultation bilaterally. Heart regular rhythm no murmur rate about 70. Chest wall and ribs nontender. Abdomen soft nontender. Moving all 4 extremities. Nontender no edema. Multiple tattoos. No injuries. 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 Normal dorsi plantarflexion. No edema. Back nontender. Neurologically she is awake alert. Answering questions and following commands. Const Vital Signs: 06/20/23 11:33 06/20/23 12:33 Temperature 96.8 F L Temperature Source Temporal Pulse Rate 67 84 Respiratory Rate 18 18 Blood Pressure 174/86 H 135/84 H Blood Pressure Mean 115 101 Pulse Ox 99 97 Oxygen Delivery Method Room Air Room Air Positive well nourished and well developed; Negative for cachectic, contractures or unkempt General Appearance ED: well developed and NAD; Negative for unkempt, cachectic, contractures or pallor Nutritional Appearance: Negative for cachectic HEENT Reports moist mucous membranes normocephalic and atraumatic; Negative for trauma or tenderness Eyes PERRL and EOMs intact bilaterally General Eye ED: Negative for pale conjunctiva or scleral icterus Neck no lymphadenopathy and no JVD General: Negative for tenderness Resp normal respiratory effort and clear to auscultation bilaterally Effort and Inspection: Negative for retractions Auscultation: Negative for rales, rhonchi, wheezes or diminished lung sounds Cardio S1 normal heart sound, S2 normal heart sound and no murmurs Palpation: Negative for other Rate: regular rate; Negative for bradycardia or tachycardic Rhythm: regular rhythm GI non-tender, non-distended and no masses Inspection: Negative for abdominal distention Auscultation: normoactive bowel sounds Palpation: soft; Negative for tender or guarding Back/Spine no CVA tenderness General Back: Negative for CVA tenderness Cervical Spine: Negative for cervical spine tenderness Thoracic Spine / Upper Back: Negative for thoracic spinal tenderness Lumbar Spine / Lower Back: Negative for lumbar spinal tenderness Coccyx: Negative for other Extremity normal to inspection General Extremety ED: Negative for edema, tenderness or other findings General Extremity: Negative for edema or other findings Neuro oriented x3, CN's II-XII intact bilaterally and no sensory deficits noted Sensorium / Orientation: alert, oriented to person, oriented to place and oriented to time; Negative for orientation impaired, confused, lethargic or stuporous Motor Exam: strength 5/5 throughout Psych thought process normal, cooperative, speech normal and activity/motor behavior normal; Negative for mental status grossly normal, affect normal or denies suicidal ideation Appearance: grossly normal, appropriate and well kempt; Negative for unkempt, disheveled, bizarre or intubated Attitude: calm, engaged, paranoid, No withdrawn, No bizarre, No uncooperative, No evasive, No guarded, No belligerent, No agitated, No aggressive and No hostile Activity / Motor Behavior: appropriate eye contact Speech: normal speech Mood & Affect: depressed and tearful Thought Process: normal thought process Thought Content: suicidality Attention / Concentration: attention grossly intact Memory / Cognition: memory grossly intact Insight: insight good Judgement: judgement good Skin General Skin Exam: Negative for jaundice or pallor Rashes: no rashes Trauma: Negative for abrasion or laceration Wounds: Negative for amputation MDM MDM MDM Narrative Medical decision making narrative: 42-year-old female with history of mental health issues. Currently paranoid, depressed with suicidal thoughts and a plan of either jumping out of a car or overdosing on Tylenol. Screening labs to be obtained. She will be mental health evaluation I suspect she will need placement. Repeat exam patient doing well at 2:20 PM. Awaiting crisis evaluation. Crisis evaluated the patient I spoke to about 2:50 PM. They also agree patient needs admission. They are working on that. She is medically cleared. Currently she is resting comfortably in the room calm and relaxed. Friend at bedside. History & Record Review Discussion w/independent historian: Patient and Friend Additional record(s) reviewed:: Prior inpatient record, Prior outpatient record, Prior ED visit and Prior labs Lab Data Attestation: I reviewed the patient's lab results. Lab results narrative: CBC shows a white count 12.7. H&H of 13.5 and 38. Platelets 262. Chemistries unremarkable gap 5. Normal BUN 14 creatinine 0.9. Glucose 109. Serum test negative. Alcohol negative. Tox screen negative. Labs: Laboratory Results - last 24 hr 06/20/23 06/20/23 12:26 12:50 WBC 12.7 H RBC 4.23 Hgb 13.5 Hct 38.8 MCV 91.7 MCH 31.9 MCHC 34.8 RDW Std Deviation 40.3 RDW Coeff of Krishna 11.9 Plt Count 262 MPV 9.5 Immature Gran % (Auto) 0.500 Neut % (Auto) 76.0 H Lymph % (Auto) 16.0 L Avery % (Auto) 7.1 Eos % (Auto) 0.0 Baso % (Auto) 0.4 Absolute Neuts (auto) 9.7 H Absolute Lymphs (auto) 2.03 Nucleated RBC % 0 Sodium 139 Potassium 3.8 Chloride 107 Carbon Dioxide 27.0 Anion Gap 5 BUN 14 Creatinine 0.90 Estim Creat Clear Calc 100.98 Est GFR (MDRD) Af Amer 89 Est GFR (MDRD) Non-Af 73 BUN/Creatinine Ratio 15.6 Glucose 109 H Calcium 9.0 Serum , Qual NEGATIVE Urine Opiates Screen NEGATIVE Urine Methadone Screen NEGATIVE Ur Barbiturates Screen NEGATIVE Ur Phencyclidine Scrn NEGATIVE Ur Amphetamines Screen NEGATIVE MDMA (Ecstasy) Screen NEGATIVE U Benzodiazepines Scrn NEGATIVE Urine Cocaine Screen NEGATIVE U Cannabinoids Screen POSITIVE H Ur Drug Screen Comment Ethyl Alcohol < 3.0 Discharge Plan Triage Chief Complaint: Mental Health ED Provider: Lex Lauren Dx/Rx/DC Orders Clinical Impression: Acute paranoia, Depression with suicidal ideation, Depression Prescriptions: No Action pantoprazole 40 MG tablet 40 mg PO DAILY lorazepam 1 mg tablet 1 mg PO Q8H PRN (Reason: anxiety) Qty: 60 1RF Primary Care Provider: Lemuel Malave Referrals: Lemuel Malave, DO [Primary Care Provider] - Disposition Disposition: Psychiatric Hospital or Unit
--- NOTE | 2023-06-20 12:15 | ED.RN ---
per Dr. Lauren, patient does not need a sitter at this time.
[2023-06-20 12:33] VITALS: BP 135/84; PULSE 84; RESP 18; O2SAT 97
[2023-06-20 12:39] LABS: Absolute Lymphocyte Count 2.03 X10^3/uL (0.83-4.51); Absolute Neutrophil Count 9.7 X10^3/uL (2.0-7.7); Basophil# 0.05 X10^3/uL; Basophil% 0.4 % (0-1); Hematocrit 38.8 % (37-47); Hemoglobin 13.5 g/dL (12.0-15.0); Lymphocyte # 2.03 X10^3/ul (0.83-4.51); Mean Corp Hgb Conc 34.8 g/dL (32-36); Mean Corpuscular Hgb 31.9 pg (27.0-32.0); Mean Corpuscular Volume 91.7 fL (81-99); Mean Platelet Vol. 9.5 fl (6.2-12.0); Monocyte% 7.1 % (0-10); NRBC Flagged by Analyzer 0 % (0-5); Neutrophil # 9.67 X10^3/uL (2.7-7.7); Platelet Count 262 K/mm3 (150-450); RBC Distribution Width CV 11.9 % (11.6-14.6); RBC Distribution Width SD 40.3 fl (35.1-43.9); Red Blood Count 4.23 M/mm3 (4.2-5.4); White Blood Count 12.7 K/mm3 (4.4-11.0)
[2023-06-20 12:50] LABS: Anion Gap 5 (5-15); BUN 14 mg/dL (7-18); BUN/Creat Ratio 15.6 RATIO (10-20); Chloride 107 mmol/L (98-107); EST Glomerular Filtration Rate 73 mL/min (>60); Est Glom Filt Rate - Afr Amer 89 mL/min (>60); Estimated Creatinine Clearance 100.98 ml/min; Glucose 109 mg/dL (74-106); Potassium 3.8 mmol/L (3.5-5.1); Sodium Level 139 mmol/L (136-145)
[2023-06-20 12:53] LABS: Internal QC Validated? YES +Cl - CLEAR BKGD; Pregnancy, Serum, hCG Quali. NEGATIVE Negative
[2023-06-20 13:09] LABS: Amphetamine Urine VISTA NEGATIVE (<1000 ng/mL); Barbiturate Urine VISTA NEGATIVE (< 200 ng/mL); Benzodiazepine Urine VISTA NEGATIVE (< 200 ng/mL); Cocaine Urine VISTA NEGATIVE (< 300 ng/mL); Ecstacy Urine VISTA NEGATIVE (< 500 ng/mL); Methadone Urine VISTA NEGATIVE (< 300 ng/mL); PCP Urine VISTA NEGATIVE (< 25 ng/mL); THC Urine VISTA POSITIVE (< 50 ng/mL); Vista UDS pH Range 5
[2023-06-20 13:09] LABS: Alcohol, Blood (Medical)-Serum < 3.0 mg/dL
--- NOTE | 2023-06-20 19:15 | ED.RN ---
THIS RN ASSUMES CARE AT THIS TIME
[2023-06-20 20:33] VITALS: BP 132/88; PULSE 74; RESP 16; O2SAT 98
[2023-06-21 04:00] VITALS: BP 134/86; PULSE 78; RESP 16; TEMP 36.2; O2SAT 98
--- NOTE | 2023-06-21 09:04 | ED.RN ---
called o[facility]choa for report. they could not get ahold of a rn at this time. states he believes they have what they need, and will call if they have any questions.
[2023-06-21 09:06] VITALS: BP 134/78; PULSE 78; RESP 16; TEMP 36.4; O2SAT 99
== END 2023-06-21 09:07 ==
PROVIDERS: Emergency Provider Emergency Medicine; PCP Family Medicine; Visit Provider Emergency Medicine
DX: F32.A Depression, unspecified (principal); F22 Delusional disorders; R45.851 Suicidal ideations; Z90.49 Acquired absence of other specified parts of digestive tract; Z90.721 Acquired absence of ovaries, unilateral; K21.9 Gastro-esophageal reflux disease without esophagitis; Z79.899 Other long term (current) drug therapy; F41.1 Generalized anxiety disorder; F17.290 Nicotine dependence, other tobacco product, uncomplicated
CPT/HCPCS: 80048; 80307; 80320; 84703; 85025; 99284; G0480

== ENCOUNTER → 2023-09-26 | Outpatient (CLI) | payer OTHER, SELFPAY ==
[2023-09-26 10:16] LABS: Absolute Lymphocyte Count 2.01 X10^3/uL (0.83-4.51); Basophil# 0.05 X10^3/uL; Basophil% 0.5 % (0-1); Eosinophil# 0.04 X10^3/uL; Eosinophils% 0.4 % (0-5); Hemoglobin 13.7 g/dL (12.0-15.0); Lymphocyte # 2.01 X10^3/ul (0.83-4.51); Lymphocyte % 20.2 % (19-41); Mean Corp Hgb Conc 32.6 g/dL (32-36); Mean Corpuscular Hgb 29.7 pg (27.0-32.0); Mean Corpuscular Volume 90.9 fL (81-99); Mean Platelet Vol. 9.9 fl (6.2-12.0); Monocyte# 0.76 X10^3/uL; Monocyte% 7.6 % (0-10); NRBC Flagged by Analyzer 0 % (0-5); Neutrophil # 7.03 X10^3/uL (2.7-7.7); Neutrophil % 70.5 % (47-70); Platelet Count 261 K/mm3 (150-450); RBC Distribution Width CV 12.3 % (11.6-14.6); RBC Distribution Width SD 40.8 fl (35.1-43.9); Red Blood Count 4.62 M/mm3 (4.2-5.4)
[2023-09-26 10:56] LABS: ALB/GLOB Ratio 0.9 RATIO (0.9-2.4); AST(SGOT) 11 U/L (15-37); Alanine Aminotransfer ALT/SGPT 22 U/L (13-56); Albumin, Serum 3.5 g/dL (3.2-5.0); Alkaline Phosphatase 63 U/L (45-117); Anion Gap 7 (5-15); BUN 23 mg/dL (7-18); BUN/Creat Ratio 23.8 RATIO (10-20); Calcium,Total 9.1 mg/dL (8.5-10.1); Chloride 108 mmol/L (98-107); Cholesterol 134 mg/dL (200); Creatinine, Serum 0.97 mg/dL (0.55-1.02); EST Glomerular Filtration Rate 68 mL/min (>60); Est Glom Filt Rate - Afr Amer 82 mL/min (>60); Globulin 3.8 g/dL (2.2-4.2); Glucose 101 mg/dL (74-106); High Density Lipoprotein 48 mg/dL; Potassium 4.2 mmol/L (3.5-5.1); Protein, Total 7.3 g/dL (6.4-8.2); Sodium Level 137 mmol/L (136-145); Triglycerides 146 mg/dL; Very Low Density Lipoprotein 29 mg/dL (5-40)
[2023-09-26 11:47] LABS: Hemoglobin A1c 5.5 % (3.8-5.6)
== END | disposition home or self-care (01) ==
LOC: MFPLAB 08:11
PROVIDERS: PCP Family Medicine; Visit Provider Nurse Practitioner Psychiatric/Mental Health
DX: F23 Brief psychotic disorder (principal)
CPT/HCPCS: 36415; 80053; 80061; 83036; 85025

== ENCOUNTER → 2024-01-09 | Outpatient (CLI) | payer OTHER, SELFPAY ==
[2024-01-09 12:17] LABS: Absolute Lymphocyte Count 2.05 X10^3/uL (0.83-4.51); Absolute Neutrophil Count 5.4 X10^3/uL (2.0-7.7); Basophil# 0.04 X10^3/uL; Basophil% 0.5 % (0-1); Eosinophil# 0.02 X10^3/uL; Eosinophils% 0.2 % (0-5); Hematocrit 38.9 % (37-47); Lymphocyte # 2.05 X10^3/ul (0.83-4.51); Lymphocyte % 24.8 % (19-41); Mean Corp Hgb Conc 33.4 g/dL (32-36); Mean Corpuscular Hgb 30.3 pg (27.0-32.0); Mean Corpuscular Volume 90.7 fL (81-99); Mean Platelet Vol. 10.1 fl (6.2-12.0); Monocyte# 0.72 X10^3/uL; Monocyte% 8.7 % (0-10); NRBC Flagged by Analyzer 0 % (0-5); Neutrophil # 5.37 X10^3/uL (2.7-7.7); Neutrophil % 65.2 % (47-70); Platelet Count 231 K/mm3 (150-450); RBC Distribution Width CV 12.6 % (11.6-14.6); RBC Distribution Width SD 41.5 fl (35.1-43.9); Red Blood Count 4.29 M/mm3 (4.2-5.4); White Blood Count 8.3 K/mm3 (4.4-11.0)
[2024-01-09 13:09] LABS: AST(SGOT) 15 U/L (15-37); Alanine Aminotransfer ALT/SGPT 26 U/L (13-56); Albumin, Serum 3.7 g/dL (3.2-5.0); Alkaline Phosphatase 69 U/L (45-117); Anion Gap 8 (5-15); BUN 14 mg/dL (7-18); BUN/Creat Ratio 15.2 RATIO (10-20); Calcium,Total 9.1 mg/dL (8.5-10.1); Chloride 107 mmol/L (98-107); Creatinine, Serum 0.92 mg/dL (0.55-1.02); EST Glomerular Filtration Rate 71 mL/min (>60); Est Glom Filt Rate - Afr Amer 86 mL/min (>60); Globulin 3.6 g/dL (2.2-4.2); Glucose 100 mg/dL (74-106); Potassium 4.1 mmol/L (3.5-5.1); Protein, Total 7.3 g/dL (6.4-8.2); Sodium Level 137 mmol/L (136-145); T4 Free Direct 0.95 ng/dL (0.76-1.46)
[2024-01-11 14:10] LABS: Thyroglobulin Antibody < 1.0 IU/mL (0.0-0.9); Thyroid Peroxidase AB < 9 IU/mL (0-34)
== END | disposition home or self-care (01) ==
LOC: BIMLAB 11:00
PROVIDERS: PCP Family Medicine; Referring Provider Family Medicine; Visit Provider Family Medicine
DX: R63.5 Abnormal weight gain (principal); T50.905A Adverse effect of unspecified drugs, medicaments and biological substances, initial encounter
CPT/HCPCS: 36415; 80053; 82533; 84439; 84443; 85025; 86376; 86800